=== PATIENT | female | born 1970 | race African-American/Black ===

== ENCOUNTER 2021-07-15 20:10 | Inpatient (IN) | payer OTHER ==
[~2021-07-15] VITALS: Ht 195.6 cm; Wt 130.6 kg
[2021-07-15 20:10] VITALS: BP_SYST 110; BP_SYST 159
--- NOTE | 2021-07-15 20:15 | NUR ---
Pt placed to ER bed 07, to gown, to traffic monitor specialist. Pt BIB ALS r/t ALOC s/p dialysis tx today. Per ALS, daughter on scene states that pt became more confused after dialysis tx. Pt currently alert, responds to tactile stimuli, able to verbalize name. Unable to follow commands. MD made aware and at bedside.
--- NOTE | 2021-07-15 20:30 | NUR ---
Pt to CT via stretcher on manager massage department, accompanied by ACLS RN.
--- NOTE | 2021-07-15 20:40 | NUR ---
Pt returns from CT, but moved to ER bed 01. Connected to veneer sorter, NAD. BETTY
--- NOTE | 2021-07-15 20:57 | NUR ---
X-ray at bedside.
--- NOTE | 2021-07-15 21:10 | NUR ---
# 20 gauge angiocath placed to LFA. Use of asceptic technique. Opsite placed over site. Blood return noted. Blood for lab drawn from site. Flushed with 10 cc of normal saline. No evidence of infiltration noted. Patient tolerated well.
--- NOTE | 2021-07-15 21:34 | NUR ---
#16 Fr. In/Out cath procedure performed, no U/O. Pt tolerated well. notified.
[2021-07-15 21:47] LABS: ANION GAP 9 (5-15); CHLORIDE 95 mmol/L (98-107); GLUCOSE 179 mg/dL (70-99); POTASSIUM 4.6 mmol/L (3.5-5.1); SODIUM SERUM 133 mmol/L (136-145); UREA NITROGEN, BLOOD 45 mg/dL (8-21)
[2021-07-15 21:49] LABS: CREATININE 9.46 mg/dL (0.55-1.30); GFR AFRICAN AMERICAN 6 mL/min (>90)
--- NOTE | 2021-07-15 21:50 | NUR ---
Pt's daughter, Alden Tovar ([phone]) called. She states that she noticed her mother to be more confused after receiving dialysis treatment today. Per daughter, pt's baseline is AAOx3 with coherent speech. She states that pt is blind in both eyes and uses a W/C and walker with assist at home. Pt receives dialysis tx at [facility] on TTS schedule with last treatment prior to today, on Monday.
[2021-07-15 22:05] LABS: ALANINE AMINOTRANSFERASE 5 U/L (12-78); ALBUMIN 3.2 g/dL (3.4-4.8); ASPARTATE AMINOTRANSFERASE 7 U/L (10-37); TOTAL BILIRUBIN 0.2 mg/dL (0.0-1.0)
[2021-07-15 22:06] LABS: ALCOHOL, BLOOD < 3 mg/dL (<10); LIPASE 329 U/L (73-393); THYROID STIMULATING HORMONE 1.16 uIu/mL (0.34-4.82)
[2021-07-15 22:07] LABS: BASOPHILS # (AUTO) 0.1 K/uL (0.0-0.2); BASOPHILS % (AUTO) 0.5 % (0.0-2.0); EOSINOPHILS # (AUTO) 0.2 K/uL (0.0-0.4); EOSINOPHILS % (AUTO) 1.9 % (0.0-4.0); HEMATOCRIT 31.5 % (36-48); HEMOGLOBIN 10.4 g/dL (12.0-16.0); LYMPHOCYTES # (AUTO) 1.1 K/uL (1.0-5.5); LYMPHOCYTES % (AUTO) 11.4 % (20.5-51.5); MEAN CORPUSCULAR HEMOGLOBIN 27 pg (27-31); MEAN CORPUSCULAR HGB CONC 33 % (32-36); MEAN CORPUSCULAR VOLUME 82 fL (79.0-98.0); MONOCYTES # (AUTO) 0.3 K/uL (0.0-1.0); MONOCYTES % (AUTO) 3.3 % (1.7-9.3); NEUTROPHILS # (AUTO) 7.7 K/uL (1.8-7.7); NEUTROPHILS % (AUTO) 82.9 % (40.0-70.0); PLATELET COUNT (AUTO) 200 K/uL (130-430); RED BLOOD CELL COUNT(AUTO) 3.84 MIL/uL (4.2-6.2); WHITE BLOOD COUNT (AUTO) 9.3 K/uL (4.8-10.8)
--- NOTE | 2021-07-15 22:08 | NUR ---
B/P 202/108. Pt denies H/A, no changes in mental status. Dr. Aguayo notified.
[2021-07-15] MEDS ORDERED: LABETALOL HCL 20 MG/4 ML CARTRIDGE IVP ONE (22:15)
--- NOTE | 2021-07-15 22:18 | NUR ---
B/P 195/105. Denies H/A, no changes in mental status. Labetalol 20 mg given IVP per MD order.
[2021-07-15] MEDS ORDERED: ONDA-8 TL (22:32)
[2021-07-15] MEDS ORDERED: PHE25 PO (22:32)
[2021-07-15] MEDS ORDERED: ATEN-168 PO (22:32)
[2021-07-15] MEDS ORDERED: DIPH50CA38 PO (22:37)
[2021-07-15] MEDS ORDERED: SEVE800T8 PO (22:37)
[2021-07-15] MEDS ORDERED: LORA-259 PO (22:37)
[2021-07-15] MEDS ORDERED: FAMO20VI PO (22:37)
[2021-07-15] MEDS ORDERED: TRAM50TA2 PO (22:37)
[2021-07-15] MEDS ORDERED: VIS25 PO (22:37)
[2021-07-15] MEDS ORDERED: TRAZ300T11 PO (22:37)
--- NOTE | 2021-07-15 22:38 | NUR ---
Medication reconciliation completed with information provided by medications at bedside. Any prior medication reconciliation on file was reviewed and corrected.
[2021-07-15] MEDS ORDERED: hydrALAZINE HCL 20 MG/ML VIAL IVP ONE (23:15)
--- NOTE | 2021-07-15 23:19 | NUR ---
Attempted to do patient's swallow eval. Patient adamently refused to take a spoonful of water and pushed the spoon away and stated, "get your fucking hands off of me". RN explained to patient the importance of swallow eval and patient refused teaching at this time, stating "I do not want fucking water thrown at me". Will continue to monitor.
[2021-07-16] VITALS (8 sets, daily range): BP systolic 152–188
--- NOTE | 2021-07-16 01:14 | NUR ---
Admit bed requested Patient will be admitted to care of Admitted to Telemetry unit. Diagnosis ALOC Inpatient (Yes or No) yes Observation (Yes or No) no Orientation concerns or request close to nursing station (Yes or No) yes Covid Status negative On vent or bipap no Isolation requirements no Needs a sitter no From Home (Yes or if No enter name of facility) yes Requires Dialysis (Yes or No) yes Med Rec Completed (Yes of No) yes
--- NOTE | 2021-07-16 01:25 | NUR ---
B/P 180/109. Denies H/A, no changes in LOC, Apresoline 5 mg IVP given per MD order.
[2021-07-16] MEDS: hydrALAZINE HCL 20 MG/ML VIAL IVP PRN ×3 (01:27→22:14)
--- NOTE | 2021-07-16 02:10 | NUR ---
Patient will be admitted to care of Dr. Gonzalez. Admitted to Tele unit. Will go to room 104B. Belongings list completed. Complete and up to date summary report printed. SBAR report to be given at bedside with opportunity for questions.
--- NOTE | 2021-07-16 02:18 | NUR ---
ADMISSION NOTE Received patient from ER via gurney. Patient admitted with diagnosis of ALOC. Patient is awake, & confused. Patient oriented to hospital room, call light, toileting, pain management and safety-teach back done. Patient informed that BERNADINE Giraldo will be primary nurse and that their room number is 104B. Personal belongings checked and Belongings List documented. Call light within reach.
--- NOTE | 2021-07-16 03:20 | NUR ---
With OFFICE CHAIR ASSEMBLER, attempted to check vital signs and remove blankets from ER. BP 160/82, HR 88 taken with cuff on lower extremity in place from ER. Patient refused any further assessment or interventions, shouting "stop that" and "get away from me." When asked what brought her to the hospital, patient stated "that's the reason I'm here." Bed alarm on, call light in reach.
--- NOTE | 2021-07-16 07:15 | NUR ---
OPENING NOTE RECEIVED SBAR FROM NIGHT RN, PATIENT IN BED, RESPIRATIONS EVEN NON LABORED, BED IN LOW AND LOCKED POSITION, CALL LIGHT WITHIN REACH, BED ALARM ON
[2021-07-16] MEDS ORDERED: POTASSIUM CHLORIDE 20 MEQ TAB.PRT.SR PO PRN (08:30)
[2021-07-16] MEDS ORDERED: MUPIROCIN 2% TOPICAL OINTMENT 22 GM NS PRN (08:30)
[2021-07-16] MEDS ORDERED: ZOLPIDEM TARTRATE 5 MG TABLET PO PRN (08:30)
[2021-07-16] MEDS ORDERED: ONDANSETRON HCL 4 MG/2 ML VIAL IVP PRN (08:30)
[2021-07-16] MEDS ORDERED: MAGNESIUM SULFATE 50 ML IV PRN (08:30)
[2021-07-16] MEDS ORDERED: ACETAMINOPHEN 325 MG TABLET PO PRN (08:30)
[2021-07-16] MEDS ORDERED: NALOXONE HCL 0.4 MG/ML AMP (NARCAN) IVP PRN ×2 (08:30)
[2021-07-16] MEDS ORDERED: MORPHINE 2 MG/ML INJ. SYRINGE IVP PRN ×2 (08:30)
[2021-07-16] MEDS ORDERED: DOCUSATE SODIUM 100 MG CAPSULE PO PRN (08:30)
[2021-07-16] MEDS ORDERED: DEXTROSE 50% JECT 50 ML DISP.SYRIN IVP PRN (08:45)
--- NOTE | 2021-07-16 09:28 | NUR ---
lab refused Addendum: 07/16/21 at 7986 by Bj Lang RN informed by director of laboratory operations. patient has refused lab draw
--- NOTE | 2021-07-16 09:46 | NUR ---
CONSULTATION PAGED/CALLED Reason for Consultation: []worsening confusion/weakness Person Who was Notified: [] Deena Consulting Physician: [] Sasha Bindery Production Manager Specialty: []Neuro Ordering Physician: []Clara Hartman
[2021-07-16] MEDS: NACL 0.9% 1,000 ML IV SCH (09:55)
[2021-07-16] MEDS: LORazepam 2 MG/ML VIAL IVP PRN ×2 (09:57→18:57)
[2021-07-16] MEDS: HEPARIN SODIUM,PORCINE 5,000 UNITS/ML VIAL SUBCUT SCH ×2 (09:58→22:50)
[2021-07-16] MEDS: SEVELAMER CARBONATE 800 MG TABLET PO SCH ×2 (11:34→18:00)
--- NOTE | 2021-07-16 12:00 | NUR ---
HOTEL AND DINING ROOM CASHIER PRINTING MANAGER Debbie responded to a Social Work consult request for "homeless, depression". PRINTING MANAGER Debbie met with patient at bedside. Patient was awake and appeared to be somewhat confused. She was aware of self, location but unable to share day/time and provide some information. PRINTING MANAGER completed introductions, provided business card, and reason for referral, patient was open to contact. Current issue/need- Patient shared she has been residing in a hotel for 2 weeks with her daughter Tato following their eviction from their apartment. Social- Patient shared she lives with her 17 year old daughter Tato but at this time she can longer afford to continue paying for the hotel. She shares she also has an adult daughter Malcom who resides in [facility], Mom Roslyn Porras , and sister Jessica Chakraborty. According to patient and patient's daughter Tato will safely be residing with her grandmother Roslyn while patient is in facility. Medical needs- Patient is visually impaired and utilizes a walker. She currently receives disability. Her daughter also receives disability due to hearing impairment (wears a hearing aid in left ear). Daughter provides support with caregiving to mother, and family provides transportation to doctor appointments. PRINTING MANAGER explored the patient utilizing family members for housing options, but shares "they'll take my daughter but not me for private reasons". PRINTING MANAGER inquired into her older child providing residence, but she shared she has a child and they reside in a small rental. Patient and her daughter shared they are receiving support with locating housing and pertinent resources from [facility] Air Shovel Operator. PRINTING MANAGER provided them information related to Community resources and encouraged them to continue following up with [facility]. PRINTING MANAGER also encouraged contact with [address] to begin process for housing, and to inquire into Housing for Health program. PRINTING MANAGER also addressed medical staff's sharing patient was refusing vitals and blood draw. PRINTING MANAGER encouraged patient to allow necessary treatment, and patient shared she 'just had a headache but it's getting better now since I'm eating". PRINTING MANAGER will continue to be available as needed.
--- NOTE | 2021-07-16 14:00 | NUR ---
Hemodialysis session by bedside, started. No acute distress. AM labs and BC were collected and sent to lab.
--- NOTE | 2021-07-16 15:07 | NUR ---
Continuity of care, endorsed.
[2021-07-16 15:19] LABS: CALCIUM 8.4 mg/dL (8.4-11.0); POTASSIUM 4.7 mmol/L (3.5-5.1)
[2021-07-16 15:21] LABS: CREATININE 10.37 mg/dL (0.55-1.30)
--- NOTE | 2021-07-16 16:00 | NUR ---
Notes/Agitation Patient is agitated, noted screaming for the nurse while in bed. Per patient, "Im blind! I need someone to help me call my family." Family just left bedside. Nurse attempted to reorient patient, pt continues to be agitated. No resp distress noted, RA. Denies any pain. Dialysis in session. Will continue to monitor.
--- NOTE | 2021-07-16 16:41 | NUR ---
ST EVALUATION COMPLETED. ST TX NOT INDICATED AT THIS TIME. RECOMMEND CONTINUE CURRENT DIET WITH DISTANT SUPERVISION AND ASPIRATION PRECAUTIONS.
[2021-07-16] MEDS: INSULIN LISPRO SLIDING SCALE 100 UNITS/ML VIAL (humaLOG) SUBCUT PRN ×2 (17:40→22:49)
--- NOTE | 2021-07-16 18:23 | NUR ---
CRITICAL LAB: Laboratory called with critical lab value Creatinine 10.37. Medical record number and patient name verified. Read back of values done. Dr Swan notified of value. No orders given at this time. Current dialysis.
--- NOTE | 2021-07-16 18:30 | NUR ---
Closing Notes Patient is awake, alert and oriented x3. No resp distress noted, RA. Pt denies any pain at this time. Pt is agitated. Nurse assisted pt with the bedpan. IV site on right FA 20 gauge intact, NS @ 50 ml/hr, infusing well. Pericare provided. Will endorse to next shift to collect UA sample. All needs met. Safety and fall precautions in place. Bed in lowest position, alarm on, locked.
[2021-07-16] MEDS: traZODone HCL 50 MG TABLET (DESYREL) PO SCH (22:12)
[2021-07-16] MEDS: ATENOLOL 50 MG TABLET (TENORMIN) PO SCH (22:13)
[2021-07-17] MEDS: traZODone HCL 50 MG TABLET (DESYREL) PO SCH ×2 (00:17→21:00)
[2021-07-17] MEDS: ATENOLOL 50 MG TABLET (TENORMIN) PO SCH ×2 (00:17→21:00)
--- NOTE | 2021-07-17 00:22 | NUR ---
Refused meds/vitals During med pass, patient was drowsy and refused PO meds. IV hydralazine given for BP 188/83. On recheck BP 158/81, HR 78. Patient removed O2 sat probe before good reading was obtained and refused temperature check. Second attempt made to give PO atenolol and trazodone. Education given about the purpose of the meds and the risks of high blood pressure, patient refused and covered head with blanket and said "leave me alone."
[2021-07-17] MEDS: NACL 0.9% 1,000 ML IV SCH (04:57)
[2021-07-17] MEDS: LORazepam 2 MG/ML VIAL IVP PRN ×2 (04:58→10:22)
[2021-07-17] MEDS: INSULIN LISPRO SLIDING SCALE 100 UNITS/ML VIAL (humaLOG) SUBCUT PRN ×2 (06:39→12:56)
--- NOTE | 2021-07-17 07:22 | NUR ---
Closing Patient resting in bed, unlabored breathing on room air. Given hydralazine IVP PRN, and Ativan PRN for agitation. Patient refused PO meds and refused labs this morning. Blood sugar 168 this morning, given 2 units lispro. IV fluids infusing as ordered. Call light in reach, fall and safety precautions in place.
--- NOTE | 2021-07-17 07:30 | NUR ---
OPENING NOTE Patient resting in bed, oriented to self, place and situation. Patient is agitated and noncompliant with plan of care. IV is in place and running prescribed fluids. All needs met at this time and safety checks made. Will continue to monitor.
[2021-07-17 08:00] VITALS: BP_SYST 187
[2021-07-17] MEDS: SEVELAMER CARBONATE 800 MG TABLET PO SCH ×3 (08:00→18:00)
--- NOTE | 2021-07-17 08:42 | NUR ---
CONSULTATION PAGED/CALLED Reason for Consultation: [] confusion and delusions Person Who was Notified: [] LEFT A VOICE MESSAGE ON HIS CELL Consulting Physician: [] DR HORTA Public Policy Professor Specialty: [] PSYCH Ordering Physician: [] Bhakti PRITCHETT
[2021-07-17] MEDS: HEPARIN SODIUM,PORCINE 5,000 UNITS/ML VIAL SUBCUT SCH ×3 (09:00→21:00)
--- NOTE | 2021-07-17 09:56 | NUR ---
DIALYSIS Patient receiving dialysis, tolerating well. All needs met at this time, and safety checks made. Will continue to monitor.
--- NOTE | 2021-07-17 10:22 | NUR ---
MEDICATION REFUSAL Patient refused morning medications, education given and patient continued to refuse. Heparin wasted in med room.
[2021-07-17 10:28] VITALS: BP_SYST 130
--- NOTE | 2021-07-17 10:47 | NUR ---
DIALYSIS FINISHED Patient refused to continue dialysis, stopped after an hour and a half. 1.5L removed.
[2021-07-17 11:30] VITALS: BP_SYST 166
[2021-07-17 15:13] VITALS: BP_SYST 166
--- NOTE | 2021-07-17 18:58 | NUR ---
CLOSING NOTE Patient in bed resting with eyes closed. No sign of distress or pain. IV is clean, dry, intact and patent. Patient has been pulling at line, redirected actions. Patient has been noncompliant with plan of care and refuses most medications. Comfort measures provided. All needs met at this time and safety checks made. Will endorse to personal injury legal assistant nurse.
--- NOTE | 2021-07-17 21:39 | NUR ---
Primary RN came and told me pt. is refusing all medication and vitals signs , went to the pt room and tried to talk to the pt , pt is covered in a blanket able to see her face eyes are closed greeted the pt and explained to her that i will check her BP so i will know what is the reading , pt stated " no leave me alone , tried to educated pt the need to check the vitals and the prescribed medication .pt stated " you can tell me the whole night but i am not going to let you or anyone do it , leave me alone" . will try again later .
--- NOTE | 2021-07-17 22:16 | NUR ---
1999- I TRIED TO TAKE THE PATIENTS VITAL SIGNS AND PATIENT REFUSED, PT STATED "IM NOT DOING NOTHING, I DONT CARE ABOUT MY BLOOD PRESSURE AND STUFF". I MADE THE CHARGE NURSE AWARE. 2099- I WENT INTO THE PATIENTS ROOM AGAIN AND TRIED TO GET HER TO LET ME TAKE HER VITAL SIGNS AGAIN WITH THE CHARGE NURSE AND PATIENT STILL REFUSED ALL VITAL SIGNS AND ALL MEDICATIONS, PT STATED: I TOLD THE OTHER NURSE AGAIN , I DONT CARE WHAT YOU TELL ME I AM NOT DOING NOTHING ALL NIGHT AND IF YOU COME BOTHER ME DURING THE NIGHT AGAIN WE ARE GOING TO HAVE A PROBLEM". I ALSO TRIED TO ADMINISTER PT MEDICATIONS, PT REFUSED ALL MEDICATIONS, PT STATED' " NO IM NOT TAKING ANYTHING I DONT CARE WHAT YOU SAY YOU NEED TO LEAVE ME ALONE". I TRIED EDUCATING THE PATIENT ABOUT THE BENEFITS OF TAKING HER MEDICATIONS AND PT STATED "GO AWAY, LEAVE ME ALONE". PT ALSO DEMANDED TO HELP HER USE THE BATHROOM I PROVIDED HER A BEDPAN AND PT STATED: " GIVE ME A WIPE NOW, AND HURRY UP" I GAVE HER THE WIPES AND SHE TRIED TO THROW THE DIRTY WIPES AT ME. I TOLD HER THAT IF SHE GETS HOSTILE WE WILL HAVE TO CALL SECURITY AND SHE CALMED DOWN A LITTLE BIT AND IS NOW LAYING DOWN WITH HEAD UP IN BED. CHARGE NURSE IS AWARE
--- NOTE | 2021-07-18 | NUR ---
PT REFUSED VITAL SIGNS , CHARGE NURSE AWARE
[2021-07-18] MEDS: NACL 0.9% 1,000 ML IV SCH ×2 (00:39→20:45)
[2021-07-18 07:28] LABS: BASOPHILS # (AUTO) 0.1 K/uL (0.0-0.2); BASOPHILS % (AUTO) 0.8 % (0.0-2.0); EOSINOPHILS # (AUTO) 0.5 K/uL (0.0-0.4); EOSINOPHILS % (AUTO) 3.2 % (0.0-4.0); HEMOGLOBIN 9.8 g/dL (12.0-16.0); LYMPHOCYTES # (AUTO) 3.1 K/uL (1.0-5.5); LYMPHOCYTES % (AUTO) 21.9 % (20.5-51.5); MEAN CORPUSCULAR HEMOGLOBIN 27 pg (27-31); MEAN CORPUSCULAR HGB CONC 33 % (32-36); MEAN CORPUSCULAR VOLUME 83 fL (79.0-98.0); MONOCYTES # (AUTO) 0.8 K/uL (0.0-1.0); MONOCYTES % (AUTO) 5.4 % (1.7-9.3); NEUTROPHILS # (AUTO) 9.6 K/uL (1.8-7.7); NEUTROPHILS % (AUTO) 68.7 % (40.0-70.0); PLATELET COUNT (AUTO) 186 K/uL (130-430); RED BLOOD CELL COUNT(AUTO) 3.61 MIL/uL (4.2-6.2); RED CELL DISTRIBUTION WIDTH 17.7 % (9.0-15.0)
[2021-07-18 07:47] LABS: CALCIUM 9.2 mg/dL (8.4-11.0); POTASSIUM 4.7 mmol/L (3.5-5.1)
[2021-07-18] MEDS: SEVELAMER CARBONATE 800 MG TABLET PO SCH ×3 (08:00→18:00)
--- NOTE | 2021-07-18 08:07 | NUR ---
OPENING NOTE Patient in bed resting, awake and alert, oriented to self, place and situation. Patient continues to refuse IV fluids. Patient refusing vital signs, will attempt to take them again after breakfast. Assisted patient to the bedside commode where she had a loose bowel movement. Reoriented patient and provided comfort measures. All needs met at this time and safety checks made. Will continue to monitor.
[2021-07-18 08:53] LABS: CREATININE 8.34 mg/dL (0.55-1.30)
[2021-07-18] MEDS: HEPARIN SODIUM,PORCINE 5,000 UNITS/ML VIAL SUBCUT SCH ×2 (09:00→21:45)
--- NOTE | 2021-07-18 09:14 | NUR ---
CRITICAL LAB Creatinine 8.34. Spoke to Dr Swan, no new orders.
[2021-07-18] MEDS: LORazepam 2 MG/ML VIAL IVP PRN (11:30)
[2021-07-18 12:11] VITALS: BP_SYST 165
--- NOTE | 2021-07-18 12:22 | NUR ---
IV INFILTRATED Old IV removed, no active bleeding. Patient refused new IV placement. MD aware and changed medication orders to PO.
[2021-07-18] MEDS ORDERED: LORazepam 1 MG TABLET PO PRN (12:30)
[2021-07-18] MEDS ORDERED: hydrALAZINE HCL 25 MG TABLET PO PRN (12:30)
[2021-07-18] MEDS: LOPERAMIDE HCL 2 MG CAPSULE PO PRN (12:36)
[2021-07-18] MEDS: INSULIN LISPRO SLIDING SCALE 100 UNITS/ML VIAL (humaLOG) SUBCUT PRN ×2 (12:38→21:46)
--- NOTE | 2021-07-18 16:10 | NUR ---
ROUNDS Patient sitting at bedside. Assisted the patient with bathing and had her linen changed. Patient is anxious and agitated. Patient frequently refuses care. All needs met and safety checks made. Will continue to monitor.
--- NOTE | 2021-07-18 16:29 | NUR ---
SPOKE WITH MD Spoke to Dr Mancilla and informed him that the patient is requesting a transfer to [facility]. Patient is refusing most treatment stating she will continue to refuse if she is at this facility. MD to see patient tomorrow morning and speak with case management about a possible transfer.
--- NOTE | 2021-07-18 16:43 | NUR ---
PATIENT AGITATED Patient agitated and screaming demanding to speak with a doctor. Updated the patient on her plan of care, patient responded "I dont want to hear that bullshit, dumbass". Comfort measures offered, patient refused. Attempted to assist patient in speaking with her daughter on the phone, patient refused. Will continue to monitor.
--- NOTE | 2021-07-18 19:39 | NUR ---
CLOSING NOTE Patient sitting at the side of the bed after eating dinner. Assisted patient with hygiene care and a bed bath, changed linens again. Patient continues to be agitated and confused, oriented to self and place. Patient insisting on transferring to [facility] and continues to refuse care. No IV access at this time, MD aware. All needs met at this time and safety checks made. Endorsed to lieutenant shift supervisor nurse.
[2021-07-18 21:04] VITALS: BP_SYST 162
[2021-07-18] MEDS: ATENOLOL 50 MG TABLET (TENORMIN) PO SCH (21:44)
[2021-07-18] MEDS: traZODone HCL 50 MG TABLET (DESYREL) PO SCH (21:44)
--- NOTE | 2021-07-18 23:30 | NUR ---
pt allowed me to attempted to insert iv. was unsuccessful. Pt allowed charge nurse to attempt to insert an iv a few times and charge nurse was unsuccessful. pt refused to have us attempt another try and inserting an iv. pt currently does not have iv access.
--- NOTE | 2021-07-19 06:49 | NUR ---
pt currently sleeping in bed. pt to have hd today. pt currently refused accu check this am. will endorse to am nurse. pt does not want to be bothered and wants to sleep right now.
[2021-07-19 06:53] LABS: BASOPHILS # (AUTO) 0.1 K/uL (0.0-0.2); BASOPHILS % (AUTO) 0.7 % (0.0-2.0); EOSINOPHILS # (AUTO) 0.3 K/uL (0.0-0.4); EOSINOPHILS % (AUTO) 4.1 % (0.0-4.0); HEMATOCRIT 27.8 % (36-48); HEMOGLOBIN 9.1 g/dL (12.0-16.0); LYMPHOCYTES # (AUTO) 2.2 K/uL (1.0-5.5); LYMPHOCYTES % (AUTO) 26.6 % (20.5-51.5); MEAN CORPUSCULAR HEMOGLOBIN 28 pg (27-31); MEAN CORPUSCULAR HGB CONC 33 % (32-36); MEAN CORPUSCULAR VOLUME 84 fL (79.0-98.0); MONOCYTES # (AUTO) 0.5 K/uL (0.0-1.0); MONOCYTES % (AUTO) 5.9 % (1.7-9.3); NEUTROPHILS # (AUTO) 5.3 K/uL (1.8-7.7); NEUTROPHILS % (AUTO) 62.7 % (40.0-70.0); PLATELET COUNT (AUTO) 179 K/uL (130-430); RED BLOOD CELL COUNT(AUTO) 3.32 MIL/uL (4.2-6.2); RED CELL DISTRIBUTION WIDTH 17.5 % (9.0-15.0); WHITE BLOOD COUNT (AUTO) 8.4 K/uL (4.8-10.8)
[2021-07-19 07:19] LABS: POTASSIUM 4.6 mmol/L (3.5-5.1)
[2021-07-19 07:45] LABS: CREATININE 10.51 mg/dL (0.55-1.30)
[2021-07-19 08:00] VITALS: BP_SYST 135
--- NOTE | 2021-07-19 08:00 | NUR ---
INITIAL NOTES PATIENT IN BED, RESTING EYES CLOSED. PATIENT AROUSED TO NAME. WENT IN TO GIVE MEDS AND TO DO HER ACCU CHECK, PATIENT REFUSED AT THIS TIME. STATED SHE WANTED TO REST AND TO NOT DISTURB HER. PATIENT ON ROOM AIR, SPO2 AT 95%. NO S/S OF DISTRESS. DENIES ANY PAIN. BREATHING EVEN AND NON LABORED. SAFETY PRECAUTIONS IN PLACE AND CALL LIGHT WITHIN REACH.
--- NOTE | 2021-07-19 08:20 | NUR ---
CRITICAL LAB CALLED AND SPOKE TO DR. ELIAS. MD KRIS NO CHANGE IN ORDERS. PATIENT TO HAVE DIALYSIS TODAY.
[2021-07-19] MEDS: SEVELAMER CARBONATE 800 MG TABLET PO SCH ×3 (10:26→18:00)
[2021-07-19] MEDS: HEPARIN SODIUM,PORCINE 5,000 UNITS/ML VIAL SUBCUT SCH ×2 (10:29→21:00)
[2021-07-19 11:23] VITALS: BP_SYST 156
--- NOTE | 2021-07-19 11:30 | NUR ---
NOTES PATIENT STARTED DIALYSIS. NO COMPLAINTS OF PAIN OR DISTRESS NOTED.
[2021-07-19] MEDS: INSULIN LISPRO SLIDING SCALE 100 UNITS/ML VIAL (humaLOG) SUBCUT PRN ×2 (11:55→17:30)
--- NOTE | 2021-07-19 13:38 | NUR ---
CM: S/w marli Bernal /[facility] tel # [phone], stated because the pt is homeless/lives in hotel and for safe discharge , the dcp is to send pt to snf which was ordered by her primary physician prior to admit at [facility]. The snf was not arranged at that time. Dolores is faxing the snf contracted to pr to find an accepting facility for dc from [facility]. Meanwhile the pt is authorized to be at [facility] until discharge.
--- NOTE | 2021-07-19 14:40 | NUR ---
NOTES DIALYSIS ENDED. OUTPUT WAS 2.6 L. NO S/S OF DISTRESS. NO PAIN NOTED. SAFETY PRECAUTIONS IN PLACE AND CALL LIGHT WITHIN REACH.
--- NOTE | 2021-07-19 16:14 | NUR ---
PARTRIDGE FARMER TILE DESIGNER Debbie responded to a request for social service support from Nurse Transitional Cleo to address patient being homeless and refusing SNF. TILE DESIGNER consulted with BOB Valdez to acquire additional information on patient's behavior and discharge plan. History- TILE DESIGNER also contacted [facility] [phone] and discussed prior discharge plans with Nurse Mall Plant Caretaker Maricruz. Maricruz shared the patient has been working with [facility] and [facility] to address housing needs. She also shared patient has a history of refusing placement upon discharge from hospitals with the most recent being [facility]. She also shared patient's PCP had requested placement with [facility], but patient had refused the required PT eval. TILE DESIGNER obtained an update from PT stated patient did not want to participate on Monday, and patient continues to need assistance in ambulation. TILE DESIGNER contactrd daughter Tato who shared she was now staying with her adult sister Malcom Chakraborty . TILE DESIGNER contacted Malcom who stated they have had numerous conversations with patient regarding ongoing care to which patient has refused as well. Malcom shared family is unable to provide care for patient as she continues to refuse treatment. It is important to note, adult daughter Malcom should be contacted to discuss patient's needs/concerns. TILE DESIGNER met with patient at bedside. She was sitting on side of bed attempting to make call to her daughter Tato. Patient was visibly upset and observed to be crying. Patient shared "everyone is lying on me" when TILE DESIGNER attempted to address her hesitation to services/treatment/procedures/discharge plan. TILE DESIGNER also spoke to patient with her daughters and sister on speaker phone as they attempted to address her hesitation and plead with her to continue medical care at a SNF or similar. Patient was observed to be crying and verbalized "i dont have nothing without Tato. I feel so alone I dont want to be here any more". Due to patient's expression of "not wanting to be here anymore", TILE DESIGNER explored these feelings further. According to patient, she feels alone due to her condition, but denies SI. At this time, following contact with daughters, patient has agreed to move forward with continued medical care in appropriate and recommended setting and participate in any needed evaluation. TILE DESIGNER provided update to Nurse Transitional Cleo MURPHY will continue to be available as needed.
[2021-07-19] MEDS: NACL 0.9% 1,000 ML IV SCH (16:45)
--- NOTE | 2021-07-19 18:42 | NUR ---
CLOSING NOTES PATIENT IS SITTING AT THE EDGE OF THE BED, EATING DINNER. PATIENT REFUSED 1800 MEDICATIONS, STATED "AM NOT GOING TO TAKE ANY MORE MEDS." PATIENT THROUGHOUT SHIFT REFUSED FOR AN IV TO BE PUT BACK IN. PATIENT WAS TO BE DISCHARGED AFTER DIALYSIS; BUT, PATIENT HAS NO WHERE TO GO. CONTACT WORKER LITHOGRAPHY AND ATM MECHANIC WORKING ON FINDING WHERE PATIENT CAN GO. AT THIS TIME, PATIENT DENIES ANY PAIN OR DISCOMFORT. DENIES ANY SOB. BREATHING EVEN AND NON LABORED, ON ROOM AIR. PATIENT AWARE TO CALL FOR ASSISTANCE WHEN NEEDED. SAFETY PRECAUTIONS IN PLACE, BED ALARM ON, AND CALL LIGHT WITHIN REACH.
[2021-07-19] MEDS: ATENOLOL 50 MG TABLET (TENORMIN) PO SCH (21:00)
[2021-07-19] MEDS: traZODone HCL 50 MG TABLET (DESYREL) PO SCH (21:00)
--- NOTE | 2021-07-19 22:18 | NUR ---
pt refused all meds, accu check and blood pressure. pt educated on importance of them all but pt continue to refuse
--- NOTE | 2021-07-20 01:00 | NUR ---
PT REFUSED MIDNIGHT VITALS. PT STILL WONT ALLOW FOR ACCU CHECK. WILL CONTINUE TO ATTEMPT TO EDUCATE PATIENT
--- NOTE | 2021-07-20 06:50 | NUR ---
pt refused blood pressure and accu check. pt legs hanging off the side of bed. pt refused to be pulled up. Due to saftey concerns pt was pulled up in bed by 2 nurses. pt tried to hit and kick both nurses and she was being pulled up. bed alarm on. call light within reach. will endorse care to day rn.
[2021-07-20 08:00] VITALS: BP_SYST 133
--- NOTE | 2021-07-20 08:00 | NUR ---
OPENING NOTE Patient in bed resting, oriented to self and place. Patient is agitated and non compliant with care. Patient agreed to have her vitals taken but is currently refusing IV access and her morning medications. Assisted patient in repositioning and comfort measures measures provided. All needs met at this time and safety checks made.
[2021-07-20] MEDS: HEPARIN SODIUM,PORCINE 5,000 UNITS/ML VIAL SUBCUT SCH ×2 (09:24→21:00)
[2021-07-20] MEDS: SEVELAMER CARBONATE 800 MG TABLET PO SCH ×3 (09:25→18:00)
--- NOTE | 2021-07-20 11:12 | NUR ---
REAL ESTATE PROFESSIONAL RN BUILDING Debbie emailed admitting to update patient's Person to Notify and Next of Kin to reflect patient's adult daughter Malcom Chakraborty
--- NOTE | 2021-07-20 11:15 | NUR ---
Discharge Planning: DCP faxed pt referral to [facility] P#[phone], Carissa Bailon P#[phone], [facility] P#[phone] DCP to follow up
[2021-07-20] MEDS: NACL 0.9% 1,000 ML IV SCH (12:45)
[2021-07-20] MEDS: INSULIN LISPRO SLIDING SCALE 100 UNITS/ML VIAL (humaLOG) SUBCUT PRN (12:49)
--- NOTE | 2021-07-20 14:56 | NUR ---
BUSINESS CENTER REPRESENTATIVE JEFFREY Lewis contacted patient's daughter Malcom to provide an update on difficulties securing placement for patient, and informed her of patient's continued refusal of care. Mental Health- Malcom shares the patient was diagnosed with Bipolar about 15 years ago, but "she has always been in denial' and has refused medication. CISCO ADMINISTRATOR explored impact and connection of untreated mental health conditions, physical health, and ability to make decisions related to safety and well-being. Malcom shares the family has explored conservatorship in the past but has been unsuccessful. Social- According to patient's daughter the family is unable to provide support to the patient at this time. She shares the patient's mother Mallika Porras is undergoing cancer treatment, patient's brother is undergoing dialysis and is in "2 boots right now". 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 She shared she was patient's previous caregiver under [facility] but due to patient's constant "accusing everyone of lying or bad treatment" she ended participation in this program. CISCO ADMINISTRATOR also discussed psych treatment due to patient's behavior/decisions and untreated mental health diagnosis and explained inpatient would be difficult due to patients ongoing medical needs. CISCO ADMINISTRATOR addressed the need for family support with discharge should placement not be found. Malcom provided information for [facility] as an additional placement option as she is employed as a EXTERIOR DOOR INSTALLER there. JEFFREY Lewis provided update to Agricultural Service Technician Cleo CISCO ADMINISTRATOR will continue to be available as needed
--- NOTE | 2021-07-20 15:11 | NUR ---
SURVEYOR ROD HELPER JEFFREY Lewis faxed packet for review to [facility] fax: direct:
--- NOTE | 2021-07-20 18:55 | NUR ---
CLOSING NOTE Patient in bed resting, no sign of distress and patient denies pain. Patient has refused to have her blood sugar checked and take her 1800 medication. Spoke with patient's daughter and updated her on the patient's plan of care. Comfort measures provided to the patient and all needs met throughout the shift. Will endorse to police shift commander nurse.
--- NOTE | 2021-07-20 20:00 | NUR ---
PT IN BED UPSET. PT REFUSED TO TAKE HER MEDS AND ACCU CHECK. ATTEMPTED TO EDUCATE PT BUT SHE REFUSED TO LISTEN. WILL CONTINUE TO MONITOR. BED ALARM ON. CALL LIGHT WITHIN REACH.
[2021-07-20 20:35] VITALS: BP_SYST 150
[2021-07-20] MEDS: ATENOLOL 50 MG TABLET (TENORMIN) PO SCH (21:00)
[2021-07-20] MEDS: traZODone HCL 50 MG TABLET (DESYREL) PO SCH (21:00)
--- NOTE | 2021-07-21 00:20 | NUR ---
PT ASLEEP IN BED. PT REFUSED VITALS AT MIDNIGHT
--- NOTE | 2021-07-21 05:48 | NUR ---
PT REFUSED ALL TREATMENT DURING SHIFT. UNABLE TO CHECK SUGAR AND GIVE MEDICATION. PT BECAME LOUD AND STARTED YELLING AT ME. PT WAS ASKED TO LOWER VOICE AND NOT YELL AT STAFF
[2021-07-21 08:00] VITALS: BP_SYST 150
[2021-07-21] MEDS: NACL 0.9% 1,000 ML IV SCH (08:45)
--- NOTE | 2021-07-21 09:05 | NUR ---
GLOBAL SECURITY ARCHITECT RISK DEVELOPER Debbie, with support from RN Erick, faxed packet for review to the following facilities for placement; [facility] fax: [facility] fax: [facility] fax: [facility] fax: [facility] fax: [facility] fax: [facility] fax: [facility] fax: [facility] fax: [facility] and [facility] fax: As directed by insurance, packets will continue to be faxed to the facilities on the list provided by insurance to locate placement.
[2021-07-21] MEDS: SEVELAMER CARBONATE 800 MG TABLET PO SCH ×3 (09:18→18:00)
[2021-07-21] MEDS: HEPARIN SODIUM,PORCINE 5,000 UNITS/ML VIAL SUBCUT SCH ×2 (09:22→21:09)
[2021-07-21 10:16] LABS: CALCIUM 9.6 mg/dL (8.4-11.0)
[2021-07-21 10:23] LABS: BASOPHILS # (AUTO) 0.1 K/uL (0.0-0.2); BASOPHILS % (AUTO) 0.7 % (0.0-2.0); EOSINOPHILS # (AUTO) 0.3 K/uL (0.0-0.4); HEMATOCRIT 30.2 % (36-48); HEMOGLOBIN 9.9 g/dL (12.0-16.0); LYMPHOCYTES # (AUTO) 1.5 K/uL (1.0-5.5); LYMPHOCYTES % (AUTO) 16.8 % (20.5-51.5); MEAN CORPUSCULAR HEMOGLOBIN 27 pg (27-31); MEAN CORPUSCULAR HGB CONC 33 % (32-36); MEAN CORPUSCULAR VOLUME 84 fL (79.0-98.0); MONOCYTES # (AUTO) 0.4 K/uL (0.0-1.0); MONOCYTES % (AUTO) 4.8 % (1.7-9.3); NEUTROPHILS # (AUTO) 6.7 K/uL (1.8-7.7); NEUTROPHILS % (AUTO) 74.7 % (40.0-70.0); PLATELET COUNT (AUTO) 178 K/uL (130-430); RED BLOOD CELL COUNT(AUTO) 3.61 MIL/uL (4.2-6.2); RED CELL DISTRIBUTION WIDTH 17.5 % (9.0-15.0)
[2021-07-21 10:49] LABS: CREATININE 10.13 mg/dL (0.55-1.30); POTASSIUM 5.9 mmol/L (3.5-5.1)
[2021-07-21 11:31] VITALS: BP_SYST 151
[2021-07-21] MEDS: INSULIN LISPRO SLIDING SCALE 100 UNITS/ML VIAL (humaLOG) SUBCUT PRN ×2 (12:36→21:07)
[2021-07-21] MEDS ORDERED: SODIUM ZIRCONIUM CYCLOSILICATE 10 GM POWD.PACK PO ONE (13:15)
--- NOTE | 2021-07-21 13:35 | NUR ---
Patient refused gait training. She is sitting, independently, at the bedside. Nursing supervising her for safety.
--- NOTE | 2021-07-21 14:00 | NUR ---
CM: S/w CHELLY Bernal/[facility]: The pt is not approved for snf placement per medical device engineer second review. She suggested to send the referral to [facility] for placement. [facility] is to authorize once there is accepting facility. The psych consult is required as well. -- Dr Gonzalez made aware. Psych consult ordered. Addendum: 07/21/21 at 1549 by Cleo Sainz RN S/W admitting /[facility] # [phone]: the pt does not meet criteria for the placement. The patient must have disability diagnosis at age 18 and be under [facility] supervision for placement. I LISA informed chelly Bernal at [facility] and asked for further placement assistance.
[2021-07-21 15:20] VITALS: BP_SYST 156
--- NOTE | 2021-07-21 18:00 | NUR ---
PT RECEIVED HEMODIALYSIS TODAY. 2.5 L FLUID REMOVED. PT IS NOW AWAKE, ALERT AND TALKATIVE. NO S/S ACUTE DISTRESS NOTED.
[2021-07-21 20:00] VITALS: BP_SYST 157
[2021-07-21] MEDS ORDERED: DIPHENHYDRAMINE HCL 12.5 MG/5 ML UDC PO PRN (20:30)
[2021-07-21] MEDS: traZODone HCL 50 MG TABLET (DESYREL) PO SCH (20:50)
[2021-07-21] MEDS: ATENOLOL 50 MG TABLET (TENORMIN) PO SCH (20:50)
[2021-07-21] MEDS: LOPERAMIDE HCL 2 MG CAPSULE PO PRN (21:07)
--- NOTE | 2021-07-21 22:10 | NUR ---
NN: PT REPORTING ITCHINESS AFTER DIALYSIS, CLAIMS THAT SHE USUALLY TAKES BENADRYL DURING DIALYSIS EVEN BEFORE HOSPITALIZATION. DID GET ORDER FROM DR. ALBRECHT REGARDING STANDING BENADRYL ORDER PRN FOR ITCHINESS. SO FAR NO COMPLAINTS OF FURTHER ITCHINESS AND PT IS CALM IN BED.
--- NOTE | 2021-07-21 23:47 | NUR ---
PT MUCH MORE COMPLIANT WITH ME WITH HER PLAN OF CARE. WAS ABLE TO TAKE VITALS, CHECK BLOOD SUGAR, AND ADMIN MEDICATION WHICH SHE ASKED QUESTIONS BEING MORE INVOLVED WITH HER CARE. HAS REMAINED CALM AND COOPERATIVE WITH ME SINCE START OF SHIFT. PROVIDED EDUCATION ON EACH NURSING INTERVENTION WELL MEDICATION ADMINISTRATION MONITORING FOR THERAPEUTIC EFFECTS. CURRENTLY IN BED RESTING COMFORTABLY. WILL CONT TO MONITOR, SAFETY PRECAUTIONS IN PLACE, AND CONT W PLAN OF CARE.
[2021-07-22 00:06] VITALS: BP_SYST 155
--- NOTE | 2021-07-22 03:58 | NUR ---
Consultation Paged Reason for Consultation: agitation/ original order was on 07/17 Was consult called: Y Person who was notified: Rachel Consulting Physician: Dr. Sotomayor Ordering Physician: Dr. Gonzalez
[2021-07-22] MEDS: NACL 0.9% 1,000 ML IV SCH (05:21)
--- NOTE | 2021-07-22 06:27 | NUR ---
PT WAS COMPLIANT THROUGHOUT THE NIGHT, BUT GETS VERY GROUCHY/ANGRY IN THE MORNING. DID NOT ALLOW ME TO PERFORM BLOOD SUGAR CHECK SHE REMAINED UNDER COVERS AND TOLD ME TO LEAVE HER ALONE. EDUCATED ON IMPORTANCE OF BLOOD SUGAR MONITORING AND INSULIN ADMIN PRIOR TO BREAKFAST WHICH SHE SAID "LATER" WILL ENDORSE DAY TEAM
--- NOTE | 2021-07-22 06:52 | NUR ---
PT WAS SEEN UP AT BEDSIDE REQUESTING CRACKERS. DID EDUCATE ONCE AGAIN IMPORTANCE OF BLOOD SUGAR MONITORING WHICH SHE DID ALLOW ME TO CHECK HER SUGAR. VALUE AT 92 WHICH WITHIN NORMAL LIMITS. PT EATING CRACKERS.
[2021-07-22] MEDS: SEVELAMER CARBONATE 800 MG TABLET PO SCH ×3 (08:00→18:33)
[2021-07-22 09:41] LABS: BASOPHILS # (AUTO) 0.1 K/uL (0.0-0.2); BASOPHILS % (AUTO) 0.6 % (0.0-2.0); EOSINOPHILS # (AUTO) 0.2 K/uL (0.0-0.4); EOSINOPHILS % (AUTO) 2.8 % (0.0-4.0); HEMATOCRIT 29.4 % (36-48); HEMOGLOBIN 9.6 g/dL (12.0-16.0); LYMPHOCYTES # (AUTO) 1.7 K/uL (1.0-5.5); LYMPHOCYTES % (AUTO) 20.4 % (20.5-51.5); MEAN CORPUSCULAR HEMOGLOBIN 27 pg (27-31); MEAN CORPUSCULAR HGB CONC 33 % (32-36); MEAN CORPUSCULAR VOLUME 83 fL (79.0-98.0); MONOCYTES # (AUTO) 0.4 K/uL (0.0-1.0); MONOCYTES % (AUTO) 5.3 % (1.7-9.3); NEUTROPHILS % (AUTO) 70.9 % (40.0-70.0); PLATELET COUNT (AUTO) 178 K/uL (130-430); RED BLOOD CELL COUNT(AUTO) 3.53 MIL/uL (4.2-6.2); RED CELL DISTRIBUTION WIDTH 17.2 % (9.0-15.0); WHITE BLOOD COUNT (AUTO) 8.5 K/uL (4.8-10.8)
[2021-07-22] MEDS: HEPARIN SODIUM,PORCINE 5,000 UNITS/ML VIAL SUBCUT SCH (09:42)
[2021-07-22 10:15] LABS: CALCIUM 9.2 mg/dL (8.4-11.0); POTASSIUM 5.1 mmol/L (3.5-5.1); TOTAL BILIRUBIN 0.2 mg/dL (0.0-1.0)
[2021-07-22 10:26] LABS: CREATININE 8.41 mg/dL (0.55-1.30)
[2021-07-22] MEDS: INSULIN LISPRO SLIDING SCALE 100 UNITS/ML VIAL (humaLOG) SUBCUT PRN ×2 (11:39→18:38)
--- NOTE | 2021-07-22 14:34 | NUR ---
EXTRAS CASTING DIRECTOR SALES CONSULTANT Debbie attempted contact with patient's brother Vern to discuss discharge, unable to leave voicemail. Addendum: 07/22/21 at 1444 by Debbie Stafford MSW SALES CONSULTANT contacted patient's daughter Malcom Chakraborty to address difficulties with obtaining placement. SALES CONSULTANT explored the need for family support with placement and transportation for discharge. SALES CONSULTANT also acknowledge Malcom's expressed concern with mental health needs, and informed her of the impact of her medical needs including ongoing dialysis on obtaining psych placement. SALES CONSULTANT inquired into patient's income amount to explore board and care, but again discussed family members taking an active role in supporting discharge. SALES CONSULTANT will continue to be available as needed Addendum: 07/22/21 at 1710 by Debbie Stafford MSW SALES CONSULTANT Debbie contacted patient's daughter Malcom to inform her of continued efforts to locate placement for her mother. SALES CONSULTANT informed her patient was ready for discharge at this time, and the referrals that were submitted for housing would not be immediate and they would be contacting patient or daughter following discharge. Patient's daughter stated she would be contacting patient's mother Roslyn Porras to collaborate transportation for discharge. SALES CONSULTANT directed patient's daughter to contact nurses station with pickup time. SALES CONSULTANT provided update to patient's assigned RN Justine and demand inspector Marisa.
--- NOTE | 2021-07-22 15:17 | NUR ---
CRYSTALLIZER OPERATOR JEFFREY Lewis contacted and faxed patient info to Vanessa at [facility] phone: fax: for support with obtaining housing assistance. JEFFREY also contacted Raheem Proctor treatment specialist to obtain assistance with placement for patient
[2021-07-22 19:19] VITALS: BP_SYST 131
--- NOTE | 2021-07-22 19:30 | NUR ---
PT IS BEING PICKED UP BY FAMILY MEMBER D/T LACK OF SNF PLACEMENT. SPOKE WITH THE DAUGHTER ON THE PHONE. EDUCATED PT ABOUT CONTINUING OUTPATIENT DIALYSIS AND FOLLOWING UP WITH PCP WITHIN 1 WEEK. VERBALIZED UNDERSTANDING. WILL CONTINUE TO MONITOR
--- NOTE | 2021-07-23 07:52 | NUR ---
PHYSICAL THERAPY CO-SIGN The Physical Therapy Progress Notes documented by Fourth Officer have been reviewed. Reviewed/Co-Signed by: David Beach Documentation Done by: TYREL GANT PTA Addendum: 07/23/21 at 8433 by David Beach PT Amended: Links added.
== END 2021-07-22 19:25 | disposition home health service (06) | DRG 73 ==
LOC: SED 20:10 → STU 07-16 01:00 → SMU 07-19 17:21
PROVIDERS: ADMIT General Practice; ATTEND General Practice
PROC: 5A1D70Z Performance of Urinary Filtration, Intermittent, Less than 6 Hours Per Day (ICD-10-PCS; principal; 2021-07-16)
PROC: 5A1D70Z Performance of Urinary Filtration, Intermittent, Less than 6 Hours Per Day (ICD-10-PCS; 2021-07-17)
PROC: 5A1D70Z Performance of Urinary Filtration, Intermittent, Less than 6 Hours Per Day (ICD-10-PCS; 2021-07-19)
PROC: 5A1D70Z Performance of Urinary Filtration, Intermittent, Less than 6 Hours Per Day (ICD-10-PCS; 2021-07-21)
DX: G90.8 Other disorders of autonomic nervous system (principal); N18.6 End stage renal disease; N17.0 Acute kidney failure with tubular necrosis; G93.41 Metabolic encephalopathy; E87.1 Hypo-osmolality and hyponatremia; I12.0 Hypertensive chronic kidney disease with stage 5 chronic kidney disease or end stage renal disease; E44.1 Mild protein-calorie malnutrition; E11.22 Type 2 diabetes mellitus with diabetic chronic kidney disease; D63.8 Anemia in other chronic diseases classified elsewhere; E66.9 Obesity, unspecified; I70.90 Unspecified atherosclerosis; Z20.822 Contact with and (suspected) exposure to COVID-19; Z99.2 Dependence on renal dialysis; Z79.899 Other long term (current) drug therapy; Z68.34 Body mass index [BMI] 34.0-34.9, adult
CPT/HCPCS: 36415; 70450-TC; 71045; 76376; 80048; 80053; 82140; 82962; 83036; 83605; 83690; 83735; 83880; 84443; 84484; 85025; 87081; 90935; 90937; 92610-GN; 93005; 96374; 96375; 97110-GP; 97112-GP; 97116-GP; 97530-GP; 99291; G0378; G0482; J0360; J1644; J2060

== ENCOUNTER 2021-07-25 09:25 | Emergency (ER) | payer OTHER ==
[~2021-07-25] VITALS: Ht 162.6 cm; Wt 142.9 kg
[~2021-07-25 09:25] MED LIST: ATEN-168 PO; DIPH50CA38 PO; FAMO20VI PO; LORA-259 PO; ONDA-8 TL; PHE25 PO; SEVE800T8 PO; TRAM50TA2 PO; TRAZ300T11 PO; VIS25 PO
[2021-07-25 09:36] VITALS: BP_SYST 142
--- NOTE | 2021-07-25 09:41 | NUR ---
51 FEMALE AOX4, BROUGHT IN BY ALS WITH COMPLAINT OF ABDOMINAL PAIN 09/22. PT MISSED DIALYSIS ONE DAY AGO. PT REPORTS HX OF DEPRESSION, RENAL FAILURE, CHF, DM, HTN, AND LEFT FOOT AMPUTATION. PT HAS RIGHT SIDED DIALYSIS PORT. PT DENIES NAUSEA OR VOMITING. PT MAY REQUIRE CASE MANAGEMENT DUE TO LIVING IN A [employer] [address]. PT PENDING MD EVALUATION. PT PLACED ON ANIMAL CARE TECHNICIAN.
--- NOTE | 2021-07-25 09:50 | NUR ---
Dr. Aguayo at [facility] to examine pt.
--- NOTE | 2021-07-25 09:53 | NUR ---
Pt refuses blood work. Pt yelling at staff and Dr. Aguayo. Pt states " Just send me home". Pt continuing to refuse testing. Dr. Aguayo aware. impregnator electrolytic capacitors aware.
--- NOTE | 2021-07-25 10:06 | NUR ---
Dr. Aguayo at bedside to assess pt.
[2021-07-25] MEDS ORDERED: DIPHENHYDRAMINE HCL 25 MG CAPSULE PO ONE (10:15)
--- NOTE | 2021-07-25 12:23 | NUR ---
Pt yelling in hallway. Pt refusing all cares, states "Call my daughter, I just want to go home". Daughter of pt called. Daughter is still trying to find pt a ride home.
[2021-07-25 17:26] VITALS: BP_SYST 166
--- NOTE | 2021-07-25 17:31 | NUR ---
Pt discharged home. BLS transport arrived to take pt. Daughter arrived to ED to take pt home as well. Pt discharged home with daughter, EMT Alphonse escorted pt via wheelchair to private vehicle Patient given written and verbal discharge instructions and verbalizes understanding. ER MD discussed with patient the results and treatment provided. Patient in stable condition. ID arm band removed. Patient educated on pain management and to follow up with PMD. Pain Scale [0/10]. Opportunity for questions provided and answered. Medication side effect fact sheet provided.
== END 2021-07-25 17:26 | disposition home or self-care (01) ==
LOC: SED 09:25
DX: E11.22 Type 2 diabetes mellitus with diabetic chronic kidney disease (principal); I13.2 Hypertensive heart and chronic kidney disease with heart failure and with stage 5 chronic kidney disease, or end stage renal disease; N18.6 End stage renal disease; Z99.2 Dependence on renal dialysis; Z91.15 Patient's noncompliance with renal dialysis; I50.9 Heart failure, unspecified; I11.0 Hypertensive heart disease with heart failure; N18.9 Chronic kidney disease, unspecified; Z88.5 Allergy status to narcotic agent; Z88.6 Allergy status to analgesic agent; Z88.8 Allergy status to other drugs, medicaments and biological substances
CPT/HCPCS: 93005; 99283

== ENCOUNTER 2021-07-29 23:52 | Emergency (ER) | payer OTHER ==
[~2021-07-29] VITALS: Ht 162.6 cm; Wt 120.2 kg
[2021-07-29 23:55] VITALS: BP_SYST 164
--- NOTE | 2021-07-29 23:55 | NUR ---
Dr. Olivera assessing pt while pt on stretcher in ER.
--- NOTE | 2021-07-29 23:55 | NUR ---
Pt BIB BLS from [address] with c/o anxiety. Pt calm and cooperative, denies c/o C/P, no SOB, VSS, NAD. Pt placed to ER waiting room via W/C per FELICIA Olivera.
--- NOTE | 2021-07-30 00:21 | NUR ---
Pt states that she does not make urine. Dr. Olivera made aware.
--- NOTE | 2021-07-30 00:31 | NUR ---
EKG PRINTED AND GIVEN TO FOR INTERPRETATION.
--- NOTE | 2021-07-30 00:45 | NUR ---
Lab tito blood without issue.
[2021-07-30 00:55] LABS: BASOPHILS # (AUTO) 0.1 K/uL (0.0-0.2); BASOPHILS % (AUTO) 0.6 % (0.0-2.0); EOSINOPHILS # (AUTO) 0.4 K/uL (0.0-0.4); EOSINOPHILS % (AUTO) 4.2 % (0.0-4.0); HEMATOCRIT 27.2 % (36-48); LYMPHOCYTES % (AUTO) 23.2 % (20.5-51.5); MEAN CORPUSCULAR HEMOGLOBIN 28 pg (27-31); MEAN CORPUSCULAR HGB CONC 33 % (32-36); MEAN CORPUSCULAR VOLUME 83 fL (79.0-98.0); MONOCYTES # (AUTO) 0.5 K/uL (0.0-1.0); MONOCYTES % (AUTO) 5.9 % (1.7-9.3); NEUTROPHILS # (AUTO) 5.7 K/uL (1.8-7.7); NEUTROPHILS % (AUTO) 66.1 % (40.0-70.0); PLATELET COUNT (AUTO) 181 K/uL (130-430); RED BLOOD CELL COUNT(AUTO) 3.28 MIL/uL (4.2-6.2); WHITE BLOOD COUNT (AUTO) 8.6 K/uL (4.8-10.8)
[2021-07-30 01:16] LABS: ANION GAP 15 (5-15); CALCIUM 8.6 mg/dL (8.4-11.0); CHLORIDE 97 mmol/L (98-107); GLUCOSE 247 mg/dL (70-99); POTASSIUM 5.1 mmol/L (3.5-5.1); SODIUM SERUM 136 mmol/L (136-145); UREA NITROGEN, BLOOD 83 mg/dL (8-21)
[2021-07-30 01:30] LABS: ALBUMIN 3.3 g/dL (3.4-4.8); ASPARTATE AMINOTRANSFERASE 10 U/L (10-37); TOTAL BILIRUBIN 0.2 mg/dL (0.0-1.0)
[2021-07-30 01:32] LABS: ALCOHOL, BLOOD < 3 mg/dL (<10); GFR AFRICAN AMERICAN 4 mL/min (>90)
[2021-07-30 01:36] LABS: CREATININE 12.71 mg/dL (0.55-1.30)
[2021-07-30 01:42] LABS: ALANINE AMINOTRANSFERASE 14 U/L (12-78)
--- NOTE | 2021-07-30 03:00 | NUR ---
Pt sitting in W/C in ER waiting room, ISABEL.
--- NOTE | 2021-07-30 05:14 | NUR ---
Dr. Olivera assessing pt in triage room. Pt states that she takes Ativan 1 mg PO BID, last one taken earlier last night. Pt calm, cooperative, and verbalizes improvent in Anxiety symptoms, but states that the Ativan is beginning to wear off. Pt denies c/o C/P or SOB. Pt returned to ER waiting room in stable condition and to be medicated with Ativan 1 mg PO.
[2021-07-30] MEDS ORDERED: LORazepam 1 MG TABLET PO ONE (05:15)
[2021-07-30 06:10] VITALS: BP_SYST 168
--- NOTE | 2021-07-30 06:10 | NUR ---
Patient given written and verbal discharge instructions and verbalizes understanding. ER MD discussed with patient the results and treatment provided. Patient in stable condition. ID arm band removed. No Rx given. Patient educated on pain management and to follow up with PMD. Pain Scale 0/10. Opportunity for questions provided and answered. Medication side effect fact sheet provided. Pt leaves via W/C in c/o taxi service to return to [facility].
== END 2021-07-30 06:10 | disposition home or self-care (01) ==
LOC: SED 23:52
DX: F41.9 Anxiety disorder, unspecified (principal); I12.0 Hypertensive chronic kidney disease with stage 5 chronic kidney disease or end stage renal disease; N18.6 End stage renal disease; E11.9 Type 2 diabetes mellitus without complications; Z88.6 Allergy status to analgesic agent; Z88.5 Allergy status to narcotic agent; Z88.8 Allergy status to other drugs, medicaments and biological substances; Z79.899 Other long term (current) drug therapy
CPT/HCPCS: 36415; 80053; 85025; 93005; 99284; G0482

== ENCOUNTER 2021-08-05 12:39 | Inpatient (IN) | payer OTHER ==
[~2021-08-05] VITALS: Ht 162.6 cm; Wt 106.1 kg
--- NOTE | 2021-08-05 12:56 | NUR ---
BROUGHT IN BY [facility]
--- NOTE | 2021-08-05 12:57 | NUR ---
OFFICER FRAHAT SPEAKING WITH PTS FAMILY ON PHONE.
[2021-08-05 13:00] VITALS: BP_SYST 183
[2021-08-05 13:21] LABS: BASOPHILS # (AUTO) 0.1 K/uL (0.0-0.2); BASOPHILS % (AUTO) 0.7 % (0.0-2.0); EOSINOPHILS # (AUTO) 0.3 K/uL (0.0-0.4); EOSINOPHILS % (AUTO) 3.3 % (0.0-4.0); HEMATOCRIT 27.7 % (36-48); LYMPHOCYTES # (AUTO) 2.2 K/uL (1.0-5.5); LYMPHOCYTES % (AUTO) 27.2 % (20.5-51.5); MEAN CORPUSCULAR HEMOGLOBIN 27 pg (27-31); MEAN CORPUSCULAR HGB CONC 33 % (32-36); MEAN CORPUSCULAR VOLUME 83 fL (79.0-98.0); MONOCYTES # (AUTO) 0.6 K/uL (0.0-1.0); MONOCYTES % (AUTO) 6.8 % (1.7-9.3); NEUTROPHILS # (AUTO) 5.1 K/uL (1.8-7.7); PLATELET COUNT (AUTO) 185 K/uL (130-430); RED BLOOD CELL COUNT(AUTO) 3.33 MIL/uL (4.2-6.2); RED CELL DISTRIBUTION WIDTH 17.1 % (9.0-15.0); WHITE BLOOD COUNT (AUTO) 8.3 K/uL (4.8-10.8)
--- NOTE | 2021-08-05 13:30 | NUR ---
Patient to ER bed 05 to gown for evaluation. Side rails up.
[2021-08-05 13:46] LABS: ANION GAP 13 (5-15); CALCIUM 8.3 mg/dL (8.4-11.0); CHLORIDE 97 mmol/L (98-107); GLUCOSE 191 mg/dL (70-99); POTASSIUM 4.2 mmol/L (3.5-5.1); SODIUM SERUM 136 mmol/L (136-145); UREA NITROGEN, BLOOD 46 mg/dL (8-21)
--- NOTE | 2021-08-05 13:58 | NUR ---
Data Center Solutions Architect PATIENT TRANSPORTATION DRIVER called ED and spoke to Annette Mejia who stated pt. is homeless, was kicked out of [employer], family does not want anything to do with her, was brougt in by [employer] and is on a 5150 hold. Rn stated pt. will be in ER for a while and to not come down. PATIENT TRANSPORTATION DRIVER will remain available as needed.
[2021-08-05] MEDS ORDERED: LORazepam 1 MG TABLET PO ONE (14:00)
--- NOTE | 2021-08-05 14:00 | NUR ---
patient AAOx3 c/o weakness d/t missed dialysis. Pt was left by her daughter and abandoned by her family at a [address]. hx of ESRD (), last dialysis was monday. noted w/right AV fistula. hx of HTN, DM, legally blind and left sided toe amputation. Pt currently on a 5150 hold for GD put on by PD. She does feel mildly short of breath. denies any CP, N/V/D. pt is very irritable and crying, stating she wants her daughter.
[2021-08-05 14:01] LABS: ALANINE AMINOTRANSFERASE 8 U/L (12-78); ALBUMIN 3.3 g/dL (3.4-4.8); ASPARTATE AMINOTRANSFERASE 7 U/L (10-37); TOTAL BILIRUBIN 0.3 mg/dL (0.0-1.0)
[2021-08-05 14:03] LABS: ALCOHOL, BLOOD < 3 mg/dL (<10); GFR AFRICAN AMERICAN 5 mL/min (>90)
[2021-08-05 14:04] LABS: ACETAMINOPHEN < 1 ug/mL (1-30); CREATININE 10.72 mg/dL (0.55-1.30)
--- NOTE | 2021-08-05 15:15 | NUR ---
Notified ED Admitting regaarding Dr. Mitchell's request for admission/transfer. Per , pt is stable for transfer. Will contact associate agent insurance sales regarding this matter. PER FACESHEET: ANISH SR PLAN-[facility]
--- NOTE | 2021-08-05 15:20 | NUR ---
Note emily in [facility] - 08/05/21 at 1745 by [email or web address] Transfer to [facility] via ACLS protocol. Licensed nurse present. IV present no signs or symptoms of infiltration.
--- NOTE | 2021-08-05 16:29 | NUR ---
Admit bed requested Patient will be admitted to care of Dr. Gonzalez. Admitted to tele unit. Diagnosis Renal Failure Inpatient (Yes or No) yes Observation (Yes or No) NO Orientation concerns or request close to nursing station (Yes or No) NO Covid Status Negative On vent or bipap Negative Isolation requirements None Needs a sitter Yes From Home (Yes or if No enter name of facility) Homeless Requires Dialysis (Yes or No) Yes Med Rec Completed (Yes of No) Yes
[2021-08-05] MEDS ORDERED: ZOLPIDEM TARTRATE 5 MG TABLET PO PRN (17:00)
[2021-08-05] MEDS ORDERED: MUPIROCIN 2% TOPICAL OINTMENT 22 GM NS PRN (17:00)
[2021-08-05] MEDS ORDERED: cloNIDine HCL 0.2 MG TABLET PO PRN (17:00)
[2021-08-05] MEDS ORDERED: MAGNESIUM SULFATE 50 ML IV PRN (17:00)
[2021-08-05] MEDS ORDERED: POTASSIUM CHLORIDE 20 MEQ TAB.PRT.SR PO PRN (17:00)
[2021-08-05] MEDS ORDERED: LORazepam 2 MG/ML VIAL IVP PRN (17:00)
[2021-08-05] MEDS ORDERED: NIFEdipine 30 MG TAB.ER.24 PO ONE (17:15)
--- NOTE | 2021-08-05 17:20 | NUR ---
Transfer to TELE via ACLS protocol. Licensed nurse present. IV present no signs or symptoms of infiltration.
--- NOTE | 2021-08-05 17:28 | NUR ---
CONSULTATION PAGED REASON FOR CONSULTATION:ESRD WAS CONSULT CALLED?Y -PERSON WHO WAS NOTIFIED:EMILEE CONSULTING PHYSICIAN:ODILON MANCINI ELECTRONIC CONTROLS REPAIRER SUPERVISOR SPECIALTY:NEPHRO ELECTRONIC CONTROLS REPAIRER SUPERVISOR PHONE NUMBER:[phone] REQUESTING PHYSICIAN: KATEY FAUST
[2021-08-05 17:42] VITALS: BP_SYST 173
[2021-08-05 18:36] VITALS: BP_SYST 182
[2021-08-05] MEDS: SEVELAMER CARBONATE 800 MG TABLET PO SCH (18:39)
--- NOTE | 2021-08-05 19:01 | NUR ---
PT JUST CAME IN APPROX 45 AGO AND ASSESSSED BY ANOTHER ASSISTING RN, I SPOKE WITH PT AFTER ADN VS TAKEN AND STABLE ACCORDING TO BASELINE. MEDS GIVEN ADN SBAR COMPLETED FOR STORAGE CENTER MANAGER RN. COMING ON SHIFT NOW. NO RESP DISTRESS AND NO C/O PAIN, NO GI/ ISSUES AND CARE RESUMED, PERSONAL WHEELCHAIR AT BEDSIDE. WATER GIVEN AND AT BEDSIDE .
[2021-08-05 20:40] VITALS: BP_SYST 181
[2021-08-05] MEDS: traZODone HCL 50 MG TABLET (DESYREL) PO SCH (22:55)
[2021-08-05] MEDS: DIPHENHYDRAMINE HCL 50 MG CAPSULE PO SCH (22:55)
[2021-08-05] MEDS: ATENOLOL 50 MG TABLET (TENORMIN) PO SCH (22:55)
[2021-08-05] MEDS: HEPARIN SODIUM,PORCINE 5,000 UNITS/ML VIAL SUBCUT SCH (22:58)
[2021-08-06 01:10] VITALS: BP_SYST 160
[2021-08-06 06:14] LABS: BASOPHILS # (AUTO) 0.1 K/uL (0.0-0.2); BASOPHILS % (AUTO) 0.7 % (0.0-2.0); EOSINOPHILS # (AUTO) 0.3 K/uL (0.0-0.4); EOSINOPHILS % (AUTO) 3.4 % (0.0-4.0); HEMATOCRIT 25.8 % (36-48); HEMOGLOBIN 8.5 g/dL (12.0-16.0); LYMPHOCYTES # (AUTO) 2.5 K/uL (1.0-5.5); MEAN CORPUSCULAR HEMOGLOBIN 28 pg (27-31); MEAN CORPUSCULAR HGB CONC 33 % (32-36); MEAN CORPUSCULAR VOLUME 83 fL (79.0-98.0); MONOCYTES # (AUTO) 0.7 K/uL (0.0-1.0); MONOCYTES % (AUTO) 8.3 % (1.7-9.3); NEUTROPHILS # (AUTO) 4.4 K/uL (1.8-7.7); NEUTROPHILS % (AUTO) 55.6 % (40.0-70.0); PLATELET COUNT (AUTO) 175 K/uL (130-430); RED BLOOD CELL COUNT(AUTO) 3.11 MIL/uL (4.2-6.2); RED CELL DISTRIBUTION WIDTH 16.8 % (9.0-15.0); WHITE BLOOD COUNT (AUTO) 7.8 K/uL (4.8-10.8)
[2021-08-06 06:24] LABS: CALCIUM 7.7 mg/dL (8.4-11.0); POTASSIUM 4.5 mmol/L (3.5-5.1)
--- NOTE | 2021-08-06 07:30 | NUR ---
Closing Patient resting in bed, no distress noted, no complaint of pain. Personal walker at bedside. Call light in reach, fall and safety precautions maintained.
--- NOTE | 2021-08-06 07:30 | NUR ---
OPENING NOTES: Received patient in bed, alert, verbally responsive and able to make her needs known. Safety precaution observed. Will continue to monitor.
[2021-08-06 07:31] LABS: CREATININE 11.96 mg/dL (0.55-1.30)
[2021-08-06 08:00] VITALS: BP_SYST 138
[2021-08-06] MEDS ORDERED: DEXTROSE 50% JECT 50 ML DISP.SYRIN IVP PRN (09:00)
[2021-08-06] MEDS: NIFEdipine 30 MG TAB.ER.24 PO SCH (09:00)
--- NOTE | 2021-08-06 09:00 | NUR ---
Pt refused IV reinsertion. IV was pulled out. Explained to patient the need to reinsert IV but refused.
[2021-08-06] MEDS: DIPHENHYDRAMINE HCL 50 MG CAPSULE PO SCH (10:00)
[2021-08-06] MEDS: SEVELAMER CARBONATE 800 MG TABLET PO SCH ×3 (10:00→17:24)
[2021-08-06] MEDS: HEPARIN SODIUM,PORCINE 5,000 UNITS/ML VIAL SUBCUT SCH ×2 (10:03→22:16)
--- NOTE | 2021-08-06 11:24 | NUR ---
PHYSICAL THERAPY EVALUATION COMPLETED. PATIENT NEEDS ASSISTANCE TO AMBULATE WITH THE FWW DUE TO WEAKNESS AND BEING LEGALLY BLIND. SHE IS SAFE FOR NURSING TO ASSIST HER.
[2021-08-06] MEDS: INSULIN LISPRO SLIDING SCALE 100 UNITS/ML VIAL (humaLOG) SUBCUT PRN ×3 (11:31→22:27)
[2021-08-06 12:00] VITALS: BP_SYST 142
--- NOTE | 2021-08-06 15:56 | NUR ---
Dietitian Recommendations * Renal, CCHO diet, Glucerna BID (ONS yields 440 kcal/day, 20 gm protein/day) LP, RD Please refer to Nutrition Assessment for details. Addendum: 08/06/21 at [address] Amended: Links added.
--- NOTE | 2021-08-06 15:58 | NUR ---
Discharge Planning: DCP faxd pt referral to [facility] F#[phone] P#[phone] DCP to follow up
[2021-08-06 17:00] VITALS: BP_SYST 136
--- NOTE | 2021-08-06 17:40 | NUR ---
Hemodialysis at bedside: HD out 2 liters. No s/s of acute distress noted. Stable vs.
--- NOTE | 2021-08-06 18:47 | NUR ---
CLOSING NOTES: Patient alert, oriented and verbally responsive. HD done with 2000 ml out, needs met throughout shift, uses bedside commode, no acute distress noted, safety precautions observed, bed alarm on, side rails up, call light within reach. Will continue to monitor until awake overnight counselor RN.
[2021-08-06 20:20] VITALS: BP_SYST 139
[2021-08-06] MEDS: ATENOLOL 50 MG TABLET (TENORMIN) PO SCH (22:17)
[2021-08-06] MEDS: DIPHENHYDRAMINE HCL 25 MG CAPSULE PO SCH (22:17)
[2021-08-06] MEDS: traZODone HCL 50 MG TABLET (DESYREL) PO SCH (22:17)
[2021-08-07 00:30] VITALS: BP_SYST 135
--- NOTE | 2021-08-07 07:40 | NUR ---
Closing Patient resting in bed, no distress noted, no complaint of pain. Blood sugar 137. Refused labs this morning. Personal walker at bedside. Call light in reach, fall and safety precautions maintained.
[2021-08-07 08:00] VITALS: BP_SYST 155
[2021-08-07] MEDS: SEVELAMER CARBONATE 800 MG TABLET PO SCH ×5 (08:00→18:00)
--- NOTE | 2021-08-07 08:00 | NUR ---
Opening Notes Patient is sitting up in bed awake. A/O x4. No apparent distress noted. Call light within reach. Safety and fall precautions in place. Provided patient with warm blanket as requested. All needs met.
--- NOTE | 2021-08-07 09:00 | NUR ---
Patient Refused Medication Patient refused medication. Encouraged patient to take, patient continued to refuse.
[2021-08-07] MEDS: DIPHENHYDRAMINE HCL 25 MG CAPSULE PO SCH ×2 (09:24→22:03)
[2021-08-07] MEDS: NIFEdipine 30 MG TAB.ER.24 PO SCH (09:24)
[2021-08-07] MEDS: HEPARIN SODIUM,PORCINE 5,000 UNITS/ML VIAL SUBCUT SCH ×2 (09:26→22:13)
[2021-08-07] MEDS: INSULIN LISPRO SLIDING SCALE 100 UNITS/ML VIAL (humaLOG) SUBCUT PRN ×3 (11:30→22:13)
[2021-08-07 12:10] VITALS: BP_SYST 138
--- NOTE | 2021-08-07 12:16 | NUR ---
KNITTING MACHINE OPERATOR AUTOMATIC met with Pt. at bedside, she was alert and pleasant today. Pt. reported that she is being cooperative with staff and has had a dialysis tx since her stay. Pt. was brought in by Artem SAENZ on a 5150 hold for GD. Pt. explained she was kicked out of a [employer] [address]. Pt. reported that she was not always following up with dialysis in the community and was unhoused off and on making it difficult for her address her medical issues. Pt. is blind, ambulates using a wheelchair, reported little activity in the community, she supports herself with SSI and family is not able to provide ongoing care. Pt. tentative DC plan is for a transfer to SNF. DC exercise planner has been working on placement. Pt. has a Hx of untreated Bipolar Disorder, she is not currently in MH Tx. KNITTING MACHINE OPERATOR AUTOMATIC offered her a referral to [facility] and she was accepting of services. KNITTING MACHINE OPERATOR AUTOMATIC generated a referral of Pt. behalf for further assistance post D/C. Pt. talkative and receptive to this customs entry writer, she relayed no further SS need at this time.
[2021-08-07 16:10] VITALS: BP_SYST 140
--- NOTE | 2021-08-07 18:55 | NUR ---
Note Attempted to insert an IV for patient three different times throughout the shift patient refused. Patient was uncooperative throughout shift.
--- NOTE | 2021-08-07 19:31 | NUR ---
Fall Patient states she lowered herself down to the ground because she wanted juice and crackers and was going to look for some. Patient states she did not fall and did not hurt herself anywhere. I assessed patient, skin is intact. Re-oriented patient to call light, patient verbalized understanding. She is aware she should use the call light when needing to get up. Ana RN, Kristal RN, and Zulay RN assisted with situation and putting patient back to bed. Vitals were taken immediately after incident, vitals are stable. Ana COLINDRES assisted with incident report.
--- NOTE | 2021-08-07 19:31 | NUR ---
FALL Nursing staff saw patient crawling in the doorway of her room. Patient stated that she got herself out of bed and onto the ground and crawled to the door because no one was answering the call light, patient stated "I didn't fall, I just wanted some juice and gram crackers". Patient assisted into a wheelchair by staff members and then assisted back into bed. No c/o pain or discomfort, no s/s injury to the patient. Side rails up x3, bed alarm on and pt asked to use the call light and not get out of bed for safety-pt stated she would and that she would yell for someone if no one answers the call light.
--- NOTE | 2021-08-07 19:40 | NUR ---
Closing Note Patient is in bed awake. Bed alarm activated. No apparent distress noted. Reminded patient to use call light when needing assistance. Call light within reach. Safety and fall precautions in place. All needs met. Endorsed care to fast food shift supervisor BERNADINE Giraldo.
[2021-08-07 20:00] VITALS: BP_SYST 142
[2021-08-07] MEDS: traZODone HCL 50 MG TABLET (DESYREL) PO SCH (22:03)
[2021-08-07] MEDS: ATENOLOL 50 MG TABLET (TENORMIN) PO SCH (22:04)
[2021-08-08 01:48] VITALS: BP_SYST 118
[2021-08-08 06:46] LABS: BASOPHILS # (AUTO) 0.1 K/uL (0.0-0.2); BASOPHILS % (AUTO) 0.7 % (0.0-2.0); EOSINOPHILS # (AUTO) 0.3 K/uL (0.0-0.4); EOSINOPHILS % (AUTO) 3.9 % (0.0-4.0); HEMATOCRIT 26.6 % (36-48); HEMOGLOBIN 8.8 g/dL (12.0-16.0); LYMPHOCYTES # (AUTO) 2.4 K/uL (1.0-5.5); MEAN CORPUSCULAR HEMOGLOBIN 28 pg (27-31); MEAN CORPUSCULAR HGB CONC 33 % (32-36); MEAN CORPUSCULAR VOLUME 84 fL (79.0-98.0); MONOCYTES # (AUTO) 0.6 K/uL (0.0-1.0); MONOCYTES % (AUTO) 7.3 % (1.7-9.3); NEUTROPHILS # (AUTO) 4.3 K/uL (1.8-7.7); NEUTROPHILS % (AUTO) 56.1 % (40.0-70.0); PLATELET COUNT (AUTO) 165 K/uL (130-430); RED BLOOD CELL COUNT(AUTO) 3.16 MIL/uL (4.2-6.2); RED CELL DISTRIBUTION WIDTH 16.9 % (9.0-15.0); WHITE BLOOD COUNT (AUTO) 7.6 K/uL (4.8-10.8)
[2021-08-08 07:30] VITALS: BP_SYST 152
[2021-08-08 07:30] LABS: CALCIUM 8.3 mg/dL (8.4-11.0)
--- NOTE | 2021-08-08 07:30 | NUR ---
Closing Patient resting in bed, no distress noted. No current IV access. After one unsuccessful attempt at IV insertion, patient refused further attempts, stating "they always have a hard time so I know it's not going to work." Otherwise cooperative with plan of care. Call light in reach, exit alarm on, fall and safety precautions maintained.
[2021-08-08] MEDS: SEVELAMER CARBONATE 800 MG TABLET PO SCH ×3 (07:48→18:59)
[2021-08-08] MEDS: DIPHENHYDRAMINE HCL 25 MG CAPSULE PO SCH ×2 (09:32→20:21)
[2021-08-08] MEDS: NIFEdipine 30 MG TAB.ER.24 PO SCH (09:32)
[2021-08-08] MEDS: HEPARIN SODIUM,PORCINE 5,000 UNITS/ML VIAL SUBCUT SCH ×2 (09:33→20:28)
[2021-08-08 10:41] LABS: POTASSIUM 6.5 mmol/L (3.5-5.1)
[2021-08-08 10:43] LABS: CREATININE 11.69 mg/dL (0.55-1.30)
--- NOTE | 2021-08-08 11:07 | NUR ---
Paged Dr. Swan Paged Dr. Swan for critical labs as charted.
--- NOTE | 2021-08-08 11:10 | NUR ---
Spoke with Spoke with regarding critical labs. New orders given and entered.
[2021-08-08] MEDS: SODIUM POLYSTYRENE SULFONATE 15 GM/60 ML UDBTL PO ONE ×2 (11:15→12:26)
[2021-08-08] MEDS ORDERED: CALCIUM GLUCONATE 1 GM/10 ML VIAL IVP ONE (11:45)
[2021-08-08 12:00] VITALS: BP_SYST 155
[2021-08-08] MEDS: INSULIN LISPRO SLIDING SCALE 100 UNITS/ML VIAL (humaLOG) SUBCUT PRN ×2 (12:28→20:28)
[2021-08-08] MEDS ORDERED: CALCIUM GLUCONATE 4.65 MEQ in NS 100 ML IV ONE (12:30)
--- NOTE | 2021-08-08 13:28 | NUR ---
Paged Regarding medication refusal by patient regardless of encouragement and explanation of importance.
--- NOTE | 2021-08-08 15:38 | NUR ---
Opening Note Patient is sitting up in bed awake. A/O x4. No apparent distress noted. Vitals as charted. Call light within reach. Safety and fall precautions in place. Oriented patient to call light light and reminded her to call when needing assistance. All needs met. Addendum: 08/08/21 at 1950 by Lacy Charles RN Note meant to be entered at 0730
--- NOTE | 2021-08-08 15:48 | NUR ---
Dialysis Dialysis began at 1548 by Saima COLINDRES
[2021-08-08 16:00] VITALS: BP_SYST 110
[2021-08-08 19:00] VITALS: BP_SYST 112
--- NOTE | 2021-08-08 19:53 | NUR ---
Closing Note Patient is sitting up in bed eating dinner. A/O x4. No apparent distress noted. Call light within reach. Safety and fall precautions in place. All needs met. Endorsed care to roller pneumatic BRENADINE Flynn.
--- NOTE | 2021-08-08 20:00 | NUR ---
pt.assessed.v/s assessed values wnl.pt.presents hx dialysis.h/d access location:rt.forearm;av-shunt. pt. presents visual challenge.pt.legal blind bilateral.i have apprised the pt.that snacks/beverages are available w/in the shift. pt.posited requests snacks/juice.pt.capable to reposition self.no c/o pain,nausea.general status stable. respiratory status stable;unlabored@room air.call light/telephone w/in access of the pt.
[2021-08-08] MEDS: ATENOLOL 50 MG TABLET (TENORMIN) PO SCH (20:23)
[2021-08-08] MEDS: traZODone HCL 50 MG TABLET (DESYREL) PO SCH (20:25)
--- NOTE | 2021-08-08 20:30 | NUR ---
blood glucose assessed value;219mg/dl.
--- NOTE | 2021-08-08 21:00 | NUR ---
2100p medications administered.pt.capable to ingest the medications w/out difficulty.no c/o pain,nausea.call light/telephone placed w/in access of the pt.
--- NOTE | 2021-08-08 22:00 | NUR ---
pt.assessed.pt.quiescent,resting.no c/o pain,nausea.pt.requested snacks.no pt.capable to reposition self. call light/ telephone w/in access of the pt.
--- NOTE | 2021-08-09 | NUR ---
pt.assessed.v/s assessed values wnl.no c/o pain,nausea.no requests posited@this hour.call light/telephone w/in access of the pt.
--- NOTE | 2021-08-09 02:00 | NUR ---
pt.assessed.pt.presents quiescent affect,somnolent.per flacc pain mgx pt.absent facial grimaces/body posturing.pt.capable to reposition self.call light/telephone w/in access of the pt.
--- NOTE | 2021-08-09 02:00 | NUR ---
pt.assessed.pt.presents quiescent affect;calm,somnolent.per flacc pain mgx pt.absent facial grimaces/body posturing.pt.capable to reposition self.call light/telephone w/in access of the pt.
--- NOTE | 2021-08-09 06:00 | NUR ---
pt.assessed.pt.quiescent,resting.blood glucose assessed value:130MG/DL.no c/o pain,nausea. no requests POSITEd@THis HoUR.pt.capable to reposition self.call light/telephone w/in access of the pt.
[2021-08-09 06:06] LABS: BASOPHILS % (AUTO) 0.7 % (0.0-2.0); EOSINOPHILS # (AUTO) 0.3 K/uL (0.0-0.4); HEMATOCRIT 25.9 % (36-48); HEMOGLOBIN 8.7 g/dL (12.0-16.0); LYMPHOCYTES # (AUTO) 1.9 K/uL (1.0-5.5); LYMPHOCYTES % (AUTO) 27.7 % (20.5-51.5); MEAN CORPUSCULAR HEMOGLOBIN 28 pg (27-31); MEAN CORPUSCULAR HGB CONC 34 % (32-36); MEAN CORPUSCULAR VOLUME 83 fL (79.0-98.0); MONOCYTES # (AUTO) 0.5 K/uL (0.0-1.0); NEUTROPHILS % (AUTO) 58.6 % (40.0-70.0); PLATELET COUNT (AUTO) 162 K/uL (130-430); RED BLOOD CELL COUNT(AUTO) 3.11 MIL/uL (4.2-6.2); RED CELL DISTRIBUTION WIDTH 16.6 % (9.0-15.0); WHITE BLOOD COUNT (AUTO) 6.8 K/uL (4.8-10.8)
[2021-08-09 06:32] LABS: CALCIUM 8.2 mg/dL (8.4-11.0); PHOSPHORUS 6.5 mg/dL (2.7-4.5); POTASSIUM 5.3 mmol/L (3.5-5.1)
[2021-08-09 06:50] LABS: CREATININE 8.51 mg/dL (0.55-1.30)
[2021-08-09] MEDS: SEVELAMER CARBONATE 800 MG TABLET PO SCH ×3 (08:00→17:43)
[2021-08-09] MEDS: NIFEdipine 30 MG TAB.ER.24 PO SCH (09:29)
[2021-08-09] MEDS: DIPHENHYDRAMINE HCL 25 MG CAPSULE PO SCH ×2 (09:29→22:51)
--- NOTE | 2021-08-09 09:30 | NUR ---
CM: SPOKE WITH DCP DAIANA , STATED THAT APS EVAL FOR [place] AND [place] HAVE BEEN DONE AND REFERRALS SENT OUT, SHE ALSO MENTIONED CONSIDERING RECUPERATIVE CARE VS SNF, BOTH WILL BE LOOK INTO AND A DECISION MADE, ALSO PT WILL NEED A PSYCH EVAL PART OF HER ASSESSMENT.
[2021-08-09] MEDS: HEPARIN SODIUM,PORCINE 5,000 UNITS/ML VIAL SUBCUT SCH ×3 (09:32→22:53)
[2021-08-09 11:29] VITALS: BP_SYST 146
[2021-08-09] MEDS: traMADol HCL HCL 50 MG TABLET (ULTRAM) PO PRN (11:31)
[2021-08-09] MEDS: LORazepam 1 MG TABLET PO PRN (15:00)
--- NOTE | 2021-08-09 16:14 | NUR ---
CONSULTATION PAGED REASON FOR CONSULTATION:PSYCH WAS CONSULT CALLED?Y -PERSON WHO WAS NOTIFIED:GLORIA CONSULTING PHYSICIAN:BETTY LEMA RATTLESNAKE FARMER SPECIALTY:PSYCHE RATTLESNAKE FARMER PHONE NUMBER:[phone] REQUESTING PHYSICIAN:LATOSHA MERCHANT
--- NOTE | 2021-08-09 19:00 | NUR ---
Miss Chakraborty has been assessed as indicated. She has difficulty with time perception. She feels that she has waited a very long period of and becomes highly agitated and begins to yell loudly and demand that staff respond to her. When in fact only a few minutes have passed. This gag writer has attempted to make her aware of this disparity. She is also forgetful and paranoid. This evening Miss Chkaraborty had an unfortunate incident. There were wipes left at the bedside when she declined a bath this evening. When she was served her dinner she was informed that there were tortillas on her plate. when she was eating she mistook one of the wipes for a tortilla and took a bite. Miss Chakraborty was very upset by this. she was very concerned that someone had done this on purpose. It took a very long time for this gag writer to calm her so that she could recall the wipes had been left from the bath she declined. Once she recalled this she felt embarrassed. stating "I feel like a fool" All efforts have been made to accommodate and calm miss Chakraborty
--- NOTE | 2021-08-09 19:15 | NUR ---
Handoff has been given top Pernell
[2021-08-09] MEDS: traZODone HCL 50 MG TABLET (DESYREL) PO SCH (22:49)
[2021-08-09] MEDS: ATENOLOL 50 MG TABLET (TENORMIN) PO SCH (22:51)
[2021-08-10] VITALS (7 sets, daily range): BP systolic 105–152
--- NOTE | 2021-08-10 08:00 | NUR ---
INITIAL NOTES Patient in bed resting, with eyes closed. Patient wants to rest without disturbance at this time. Safety precautions in place and call light within reach.
--- NOTE | 2021-08-10 09:30 | NUR ---
Notes Patient is being cooperative at this time. Patient is stable, no distress or pain noted.
[2021-08-10] MEDS: SEVELAMER CARBONATE 800 MG TABLET PO SCH ×3 (10:30→17:11)
[2021-08-10] MEDS: HEPARIN SODIUM,PORCINE 5,000 UNITS/ML VIAL SUBCUT SCH ×2 (10:30→20:42)
[2021-08-10] MEDS: DIPHENHYDRAMINE HCL 25 MG CAPSULE PO SCH ×2 (10:31→20:40)
[2021-08-10] MEDS: NIFEdipine 30 MG TAB.ER.24 PO SCH (10:32)
--- NOTE | 2021-08-10 11:30 | NUR ---
Notes Patient is having dialysis. No s/s of distress noted. Denies pain. in bed, watching TV.
[2021-08-10] MEDS: INSULIN LISPRO SLIDING SCALE 100 UNITS/ML VIAL (humaLOG) SUBCUT PRN ×2 (11:42→20:43)
--- NOTE | 2021-08-10 15:12 | NUR ---
IMMIGRATION COORDINATOR JEFFREY Browningette met with patient at bedside. Patient was awake, alert and oriented x4. NSW Debbie reintroduced herself, and patient stated she remembered from last inpatient stay. Current concern- Patient was residing in Mot 6, but no longer able to sustain payments. Patient's family has also expressed not wanting to continue to care for patient due to her prior refusal of care and "not wanting to help herself" Housing- According to patient, she was transported to [facility] by jeanna Krystle following previous discharge. She shared she was unable to continue to paying motel, and according to patient she was left outside. Patient expressed to HIGH WORKER that she was being more cooperative "this time", and understands her refusal of different treatments and behavior towards staff impacted her ability to locate placements that would benefit and address her health needs. HIGH WORKER acknowledged her new outlook, and utilized empathetic and reflective listening techniques when she expressed her desire to get better and "do whatever the doctors and nurses need her to do so she can be placed somewhere". HIGH WORKER informed patient efforts were underway to locate SNF placement as well as [facility] programs. HIGH WORKER will continue to be available as needed
--- NOTE | 2021-08-10 16:30 | NUR ---
Notes Dialysis has finished. 2.5 L of output. Patient is stable. No distress noted. Safety Precautions in place.
--- NOTE | 2021-08-10 17:30 | NUR ---
received bedside report. pt in bed. pt yelled at me to get out of room. attempted to calm pt down. left room. made charge nurse aware of the situation. pt continued to yell for charge nurse. pt then got out of bed and started to crawl to the nurses station yelling for charge nurse. charge nurse at bedside. house sup at bedside. pt continue to yell and crawled back to bed. pt helped back to bed by charge nurse and house sup. assignment changed and report given to laurent nurse jay Addendum: 08/10/21 at 2012 by Osbaldo Barbosa RN @[phone]
--- NOTE | 2021-08-10 18:45 | NUR ---
Closing Notes Patient in bed, eating dinner. Safety precautions in place and call light within reach. Will endorse care to incoming nurse.
--- NOTE | 2021-08-10 19:30 | NUR ---
received bedside report. pt in bed. pt yelled at me to get out of room. attempted to calm pt down. left room. made charge nurse aware of the situation. pt continued to yell for charge nurse. pt then got out of bed and started to crawl to the nurses station yelling for charge nurse. charge nurse at bedside. house sup at bedside. pt continue to yell and crawled back to bed. pt helped back to bed by charge nurse and house sup. assignment changed and report given to new nurse jay
[2021-08-10] MEDS: ATENOLOL 50 MG TABLET (TENORMIN) PO SCH (20:40)
[2021-08-10] MEDS: traZODone HCL 50 MG TABLET (DESYREL) PO SCH (20:45)
[2021-08-11 00:04] VITALS: BP_SYST 121
--- NOTE | 2021-08-11 02:54 | NUR ---
. 1999 Pt. received from other nurse, pt uncooperative and verbally abusive. Introduced self, pt. to get exceptional personal care and to be monitored. 2029 Pt. given a bedbath, and clean clothes, and bedding. Pt. more cooperative and less aggressive, took noc meds. 0030 Pt. sleeping, vss 0200 No distress, sleeping
--- NOTE | 2021-08-11 05:07 | NUR ---
Follow up consult for Dr. Sotomayor was called Left a message to [facility] for Consult.
--- NOTE | 2021-08-11 06:11 | NUR ---
0600 Pt. needs met this shift, pt. slept well, vss, no acute distress. Call light in reach.
[2021-08-11 08:33] VITALS: BP_SYST 102
[2021-08-11 09:27] LABS: BASOPHILS # (AUTO) 0.1 K/uL (0.0-0.2); BASOPHILS % (AUTO) 1.2 % (0.0-2.0); EOSINOPHILS # (AUTO) 0.3 K/uL (0.0-0.4); EOSINOPHILS % (AUTO) 4.7 % (0.0-4.0); HEMATOCRIT 26.3 % (36-48); HEMOGLOBIN 8.8 g/dL (12.0-16.0); LYMPHOCYTES # (AUTO) 2.4 K/uL (1.0-5.5); MEAN CORPUSCULAR HEMOGLOBIN 28 pg (27-31); MEAN CORPUSCULAR HGB CONC 33 % (32-36); MEAN CORPUSCULAR VOLUME 83 fL (79.0-98.0); MONOCYTES # (AUTO) 0.5 K/uL (0.0-1.0); MONOCYTES % (AUTO) 6.8 % (1.7-9.3); NEUTROPHILS # (AUTO) 3.9 K/uL (1.8-7.7); NEUTROPHILS % (AUTO) 54.3 % (40.0-70.0); PLATELET COUNT (AUTO) 166 K/uL (130-430); RED BLOOD CELL COUNT(AUTO) 3.16 MIL/uL (4.2-6.2); RED CELL DISTRIBUTION WIDTH 16.5 % (9.0-15.0); WHITE BLOOD COUNT (AUTO) 7.2 K/uL (4.8-10.8)
[2021-08-11] MEDS: DIPHENHYDRAMINE HCL 25 MG CAPSULE PO SCH ×2 (09:38→21:54)
[2021-08-11] MEDS: NIFEdipine 30 MG TAB.ER.24 PO SCH (09:39)
[2021-08-11] MEDS: HEPARIN SODIUM,PORCINE 5,000 UNITS/ML VIAL SUBCUT SCH ×2 (09:40→22:00)
[2021-08-11] MEDS: SEVELAMER CARBONATE 800 MG TABLET PO SCH ×3 (09:43→18:51)
[2021-08-11 09:46] LABS: CALCIUM 8.8 mg/dL (8.4-11.0); POTASSIUM 5.6 mmol/L (3.5-5.1)
[2021-08-11 10:02] LABS: CREATININE 8.8 mg/dL (0.55-1.30)
--- NOTE | 2021-08-11 10:02 | NUR ---
NOTES: lab called for Creat 8.8, nurse Carmelina ortiz.
--- NOTE | 2021-08-11 10:21 | NUR ---
DR JADA GARCIA FOR LABORATORY RESULTS BUN 48, CREATININE 8.80 AND POTASSIUM 5.6.
--- NOTE | 2021-08-11 11:00 | NUR ---
CALLED BACK AND ORDERED TO HAVE KAXEYELATE 15 GM X 1.
[2021-08-11] MEDS ORDERED: SODIUM POLYSTYRENE SULFONATE 15 GM/60 ML UDBTL PO ONE (12:00)
--- NOTE | 2021-08-11 12:45 | NUR ---
HIGH SCHOOL FOREIGN LANGUAGE TUTOR JEFFREY Lewis provided patient information to Margarita from "[facility]" to assist with locating appropriate placement for patient. PATIENT SERVICE REPRESENTATIVE will continue to be available as needed Addendum: 08/12/21 at 1557 by Debbie Stafford MSW PATIENT SERVICE REPRESENTATIVE received a call from Margarita sharing she is working with Annette from [facility] and they may have placement available for patient. She shared Annette would be contacting this PATIENT SERVICE REPRESENTATIVE and patient's daughter to obtain additional information.
[2021-08-11 13:17] VITALS: BP_SYST 137
--- NOTE | 2021-08-11 13:45 | NUR ---
Nutrition F/U Admitting Diagnosis Renal failure Reviewed Pertinent Medical/Surgical Hx Medical Record Patient Medical History Comment: PMH: HD (2 years), non-compliance/missing HD, legally blind, toe amputations, ESRD, HTN, and DM per physician notes Pt also found w/ moderate malnutrition and metabolic encephalopathy per physician notes SARS-CoV-2 Ag (Rapid) Negative 08/05 Subjective Information: RD rounded to pt's bedside. Pt reported that she didn't care for breakfast or lunch today, so she didn't eat. RD inquired about pt's food preferences, however, pt kept stating that "[we] can't give her what [she] wants." RD offered fresh turkey sandwiches -- pt was agreeable. RD notified FNS to prepare. Per EMR review, average PO intake of 84% x11 meals; active bowel sounds; LBM x1 08/10; Aguilar scale: 16, no PIs noted. Pt appears to be meeting optimal nutritional needs based on past PO intake records. Adhere to pt's food preferences to continue to meet nutritional needs. Per LOS meeting, pt continues on HD and pending placement for possible SNF. Current Diet Order/Nutrition Support[facility] Patient/Significant Other Able To Verbalize Education Provided Not Indicated Pertinent Medications: SSI, heparin, renvela Pertinent Labs: BG 114 H, BUN 48 H, CRE 8.8 H, K 5.6 H, POC BG 102 H Height (Feet) 5 feet Height (Inches) 4.00 inches Weight (Pounds) 240 pounds Weight (Calculated Kilograms) 108.487361 kilograms Patient Weight 108.862 kg Body Mass Index 41.19 kg/m2 %IBW 200 [place]/Adjusted Body Weight 120#/54.5 kg Recent Weight Change Unable to verify Weight Status Morbidly Obese Food Allergies No Usual Diet At Home Renal per shipping and receiving specialist Skin Integrity Comment: No skin issues noted per EMR review Current % PO Good (75-100%) Estimated Energy Expenditure (kcals/day) 6017-0648 (30-35 kcal/kg Adj IBW d/t morbid obesity, ESRD/HD) Estimated Protein Required (g/day) 82-102 (132-1.5 gm/kg Adj IBW d/t morbid obesity, ESRD/HD) Estimated Fluid Required (l/day) Per physician d/t ESRD Problem/Etiology/Signs/Symptoms Malnutrition R/T morbid obesity AEB BMI: 41.4 kg/m2 and 200% of IBW. *Ongoing Increased nutritional needs R/T metabolic demands AEB estimated nutritional requirements for chronic ESRD/HD. *Ongoing Expected Outcomes/Goals - Monitor appetite and PO intakes w/ goal of pt meeting >80% of estimated nutritional needs, labs trending WNL, normal GI function, and skin integrity/wt maintenance Dietitian Recommendations * Continue CCHO diet * Adhere to food preferences Follow Up Low Risk: F/U in 7 days
--- NOTE | 2021-08-11 14:00 | NUR ---
HAD SOFT BOWEL MOVEMENT X 1 BROWN STOOL.
[2021-08-11 16:29] VITALS: BP_SYST 115
--- NOTE | 2021-08-11 17:20 | NUR ---
PHYSICAL THERAPY CO-SIGN The Physical Therapy Progress Notes documented by Certified Physical Therapist Assistant have been reviewed. Reviewed/Co-Signed by: Salma Edwards PT Documentation Done by:FAIZAN LYON RETENTION REPRESENTATIVE Addendum: 08/11/21 at 1720 by Salma Edwards PT Amended: Links added.
--- NOTE | 2021-08-11 18:00 | NUR ---
REFUSED TO HAVE BLOOD SUGAR CHECKED.
--- NOTE | 2021-08-11 18:54 | NUR ---
HAD DIARRHEA X 2. CALLED [address] HOLMAN REFUSED TO HAVE MEDICATION FOR THAT MATTER.
--- NOTE | 2021-08-11 19:28 | NUR ---
Patient refuses assistance after calling consumer loan underwriter. Says she wants someone else to assist her to bedside commode. Education to patient and shipping/receiving clerk consumer loan underwriter is available to assist when needed. Mj Weems RN
[2021-08-11 19:38] VITALS: BP_SYST 137
--- NOTE | 2021-08-11 19:43 | NUR ---
Patient request for life underwriter assist to bedside commode. Assistance given. Mj Weems RN
--- NOTE | 2021-08-11 20:02 | NUR ---
Patient had small bm soft brown. Perineal care. Patient request for diet lemon rosebud soda given. Mj Weems RN
[2021-08-11] MEDS: ATENOLOL 50 MG TABLET (TENORMIN) PO SCH (21:54)
[2021-08-11] MEDS: LORazepam 1 MG TABLET PO PRN (22:09)
[2021-08-11] MEDS: INSULIN LISPRO SLIDING SCALE 100 UNITS/ML VIAL (humaLOG) SUBCUT PRN (22:20)
[2021-08-11] MEDS: traZODone HCL 50 MG TABLET (DESYREL) PO SCH (22:22)
[2021-08-12 01:02] VITALS: BP_SYST 135
--- NOTE | 2021-08-12 08:00 | NUR ---
NOTES PATIENT AAOX 2. VITALS SIGNS STABLE. AFEBRILE. NO IV ACCESS NOTED. HAS AV SHUNT RIGHT ARM. PALPABLE THRILL AND BRUIT. CALL LIGHTS WITHIN REACH. WILL CONTINUE
[2021-08-12] MEDS: SEVELAMER CARBONATE 800 MG TABLET PO SCH ×3 (09:16→16:47)
[2021-08-12] MEDS: NIFEdipine 30 MG TAB.ER.24 PO SCH (09:17)
[2021-08-12] MEDS: DIPHENHYDRAMINE HCL 25 MG CAPSULE PO SCH ×3 (09:17→20:48)
[2021-08-12] MEDS: HEPARIN SODIUM,PORCINE 5,000 UNITS/ML VIAL SUBCUT SCH ×3 (09:18→20:49)
--- NOTE | 2021-08-12 10:00 | NUR ---
DUE MEDS GIVEN. MADE COMFORTABLE.
[2021-08-12 10:06] VITALS: BP_SYST 136
--- NOTE | 2021-08-12 12:28 | NUR ---
Dietitian Recommendations * Continue [facility] diet * Adhere to food preferences LP, RD Please refer to Nutrition F/U for details.
--- NOTE | 2021-08-12 12:34 | NUR ---
HR OPERATIONS ADVISOR ESTATE MANAGER Debbie contacted Department of Mental Health FSP Worker Joanna to inquire into status of referral for patient. According to Joanna, she was not able to locate referral in computer but shared there is a waiting list of atleast a month and sometimes that can impact if they are able to view the referral. As suggested by Joanna, ESTATE MANAGER will complete another referral for patient
[2021-08-12] MEDS: INSULIN LISPRO SLIDING SCALE 100 UNITS/ML VIAL (humaLOG) SUBCUT PRN (12:44)
--- NOTE | 2021-08-12 14:00 | NUR ---
LESA JARRETT CAME TO INFORMED PATIENT REGARDING FOODS TO EAT.
[2021-08-12 16:15] VITALS: BP_SYST 132
--- NOTE | 2021-08-12 16:16 | NUR ---
RESTING AND SLEEPING REFUSED TO BE DISTURBED.
--- NOTE | 2021-08-12 16:17 | NUR ---
[facility] NURSE WILL COME TO DO DIALYSIS TODAY.
--- NOTE | 2021-08-12 16:21 | NUR ---
[facility] DIALYSIS NURSE CAME AND REFUSED TIMES TWO. PER AWILDA RN SAID. WILL INFORMED DR ELIAS [facility]
[2021-08-12] MEDS ORDERED: SODIUM ZIRCONIUM CYCLOSILICATE 10 GM POWD.PACK PO ONE (17:30)
--- NOTE | 2021-08-12 18:49 | NUR ---
TELE MEDICINE FOR PSYCHIATRY DONE AT THIS TIME. AWAITING FOR THE PSYCHIATRY TO ANSWER
--- NOTE | 2021-08-12 18:52 | NUR ---
PATIENT AGREED TO HAVE DIALYSIS TOMORROW, DR ELIAS IS AWARE.
[2021-08-12 20:00] VITALS: BP_SYST 154
[2021-08-12] MEDS: ATENOLOL 50 MG TABLET (TENORMIN) PO SCH ×2 (20:44→20:49)
[2021-08-12] MEDS: traZODone HCL 50 MG TABLET (DESYREL) PO SCH ×2 (20:44→20:48)
--- NOTE | 2021-08-12 20:51 | NUR ---
PATIENT REFUSES ALL MEDICATION . SAYS SHE ONLY WANTS SEROQUEL AND LOPERAMIDE. WILL ENDORSE. DAVE PARKER RN
--- NOTE | 2021-08-12 21:31 | NUR ---
[facility] Call to provider who says sertraline ok if patient can give us dose she is taking at home, no loperimide for this time. Mj Weems RN
--- NOTE | 2021-08-12 21:33 | NUR ---
Patient call to home contact who does not have the dose of sertraline at this time. Mj Weems RN
[2021-08-12] MEDS: traMADol HCL HCL 50 MG TABLET (ULTRAM) PO PRN (22:41)
--- NOTE | 2021-08-12 22:44 | NUR ---
PATIENT SAYS HER DAUGHTER SAYS SHE TAKES 25 MG FOR YEARS AND OYSTER WORKER SHOULD HAVE THE DOSE WHEN ASKED FOR THE PRESCRIPTION BOTTLE FROM HOME. WILL REVIEW PREVIOUS ADMISSION PAPERWORK. PATIENT MENTIONS SHE IS SUICIDAL. DOES NOT HAVE A PLAN TO HARM HERSELF AT THIS TIME. DAVE PARKER RN
--- NOTE | 2021-08-12 22:46 | NUR ---
REVIEW OF PREVIOUS ADMISSION MEDICATION DOES NOT YIELD RESULTS OF SERTRALINE MEDICATION PRESCRIPTION DOSE. DAVE PARKER RN
--- NOTE | 2021-08-12 23:06 | NUR ---
PATIENT EDUCATION INSTRUCTION TO BRING SERTRALINE BOTTLE FROM HOME. PATIENT SAYS HER DAUGHTER IS TO YOUNG TO DRIVE. ASKED ABOUT A FRIEND TO BRING THE PRESCRIPTION OR OTHER FAMILY, PATIENT SAYS SHE CAN'T BECAUSE SHE IS HOMELESS. DAVE PARKER RN
--- NOTE | 2021-08-13 00:01 | NUR ---
PATIENT SAYS SHE TOLD ACCOUNTANT TO PULL ALL 9PM MEDICATION AND SHE WOULD TAKE IT. DAVE PARKER RN
[2021-08-13] MEDS: DIPHENHYDRAMINE HCL 25 MG CAPSULE PO SCH ×3 (00:05→21:00)
[2021-08-13] MEDS: traZODone HCL 50 MG TABLET (DESYREL) PO SCH ×2 (00:06→22:55)
[2021-08-13] MEDS: ATENOLOL 50 MG TABLET (TENORMIN) PO SCH ×2 (00:07→21:12)
[2021-08-13] MEDS: HEPARIN SODIUM,PORCINE 5,000 UNITS/ML VIAL SUBCUT SCH ×3 (00:14→21:19)
[2021-08-13] MEDS: INSULIN LISPRO SLIDING SCALE 100 UNITS/ML VIAL (humaLOG) SUBCUT PRN ×2 (00:17→12:33)
--- NOTE | 2021-08-13 00:28 | NUR ---
PATIENT TOLERATED MEDICATION WELL ASSIST TO ARRANGE ITEMS WITHIN REACH OF PATIENT. DAVE PARKER RN
[2021-08-13 01:03] VITALS: BP_SYST 165
--- NOTE | 2021-08-13 07:20 | NUR ---
rn opening note report was endorsed by night nurse. patient is awake and sitting up in bed. no needs at this time. call light is with her educated to use for assistance. close to nurses station.
--- NOTE | 2021-08-13 07:32 | NUR ---
PHYSICAL THERAPY CO-SIGN The Physical Therapy Progress Notes documented by Erp Engineer have been reviewed. Reviewed/Co-Signed by: David Beach Documentation Done by: BRETT LYON PTA Addendum: 08/13/21 at 0733 by David Beach PT Amended: Links added.
[2021-08-13 08:00] VITALS: BP_SYST 156
[2021-08-13] MEDS: traMADol HCL HCL 50 MG TABLET (ULTRAM) PO PRN (08:18)
[2021-08-13] MEDS: SEVELAMER CARBONATE 800 MG TABLET PO SCH ×3 (08:20→18:27)
--- NOTE | 2021-08-13 08:22 | NUR ---
medication patients complains of pain medicated per order. patient is scheduled to have hemodialysis done today, held bp medication and heparin. patient refused blood work to be drawn. patient educated director hr communications light for assistance. no other needs at this time. patient is close to nurses station.
[2021-08-13] MEDS: NIFEdipine 30 MG TAB.ER.24 PO SCH (09:00)
[2021-08-13 12:00] VITALS: BP_SYST 157
--- NOTE | 2021-08-13 12:00 | NUR ---
CLAIM REPRESENTATIVE SUSTAINABILITY SPECIALIST Debbie met with patient at bedside to discuss plan to discharge to [facility]. Patient stated "nope I'm not going there, I'll go to the streets". SUSTAINABILITY SPECIALIST made several efforts to identify the benefits of board and care vs motel and explained the facility amenities. SUSTAINABILITY SPECIALIST also informed patient her daughter had spoken to the theatrical variety agent of the facility and would be covering the extra cost. Patient again expressed her refusal. SUSTAINABILITY SPECIALIST consulted with Director of Case Management Sharmaine and Dr. Vasquez, and collaborated on meeting with patient to discuss the safe discharge. Patient again refused and contacted her mother during contact. According to patient, her mother has told her not to discharge to [facility]. Patient's RN Shirley and SUSTAINABILITY SPECIALIST spoke to patient's sister Beata Chakraborty who expressed wanting to the patient to discharge to SNF. SUSTAINABILITY SPECIALIST attempted to explain patient did not meet requirements for SNF. She also shared they participated in a "family meeting last week with [facility] and some other case mgr named Moon", and according to her they determined patient required SNF. Due to family expressing concern with patient's care, SUSTAINABILITY SPECIALIST informed her family is able to provide care as well upon discharge if they chose to. SUSTAINABILITY SPECIALIST contacted [facility] to obtain information related to potential discharge plan. According to Director of Case Management Elisa, they have not met with patient since 06/11/2021. SUSTAINABILITY SPECIALIST spoke to Moon [facility] for [facility]. SUSTAINABILITY SPECIALIST and Director of Case Management Sharmaine made efforts to provide an explanation of "skilled need". [facility] promotion officerSugar Mill Worker Dolores contacted this SUSTAINABILITY SPECIALIST requesting patient to be discharged to SNF. SUSTAINABILITY SPECIALIST made attempts to explain the patient does not have a skilled need and previous efforts to obtain SNF placement have been unsuccessful. She stated she would be contacting additional persons with [facility] to discuss authorization for SNF. SUSTAINABILITY SPECIALIST explained the patient's is ready for discharge at this time. SUSTAINABILITY SPECIALIST and Director of Case Management Sharmaine collaborated on speaking with patient's daughter Malcom who agreed to placement in [facility] and would speak to the family. Patient's mother informed case management and social worker psychiatric they would be filing an appeal on the discharge at this time. SUSTAINABILITY SPECIALIST provided patient's RN Shirley update on discharge.
--- NOTE | 2021-08-13 12:33 | NUR ---
accu check patients accu check done, coverage given per order. patient seen via telehealth psych at bed side. patient educated magnetic resonance technologist light for assistance. call light is with her. lunch is with her. educated on lunch tray and placed in front of her. patient has no other needs or complaints at this time. close to nurses station
[2021-08-13] MEDS ORDERED: SERTRALINE HCL 50 MG TABLET PO ONE (13:30)
--- NOTE | 2021-08-13 13:45 | NUR ---
DIGITAL MEDIA ASSOCIATE CANDY MAKER HELPER Debbie contacted Annette with [facility] to inform her the patient would not be discharging to her facility due to patient refusal and family stating they will be appealing discharge at this time. Annette expressed her understanding and shared she could not save a bed and is concerned about accepting patient at a later time due to difficulties with patient and family.
[2021-08-13 16:11] VITALS: BP_SYST 155
[2021-08-13] MEDS: EPOETIN ALFA-EPBX 4,000 UNITS/ML VIAL SUBCUT SCH (16:38)
--- NOTE | 2021-08-13 16:39 | NUR ---
accu check patients accu check done, no coverage needed. patient is refusing medication states she does not want to be poked. patient educated cell operation supervisor light for assistance. call light is with her. no other needs at this time. patient is close to nurses station.
--- NOTE | 2021-08-13 16:47 | NUR ---
Received appeal from [facility] #[id number] records requested sent by Medical records on 08/13/21 at 4:30 PM
[2021-08-13] MEDS ORDERED: DIPHENHYDRAMINE INJ 50 MG/ML VIAL IVP ONE (18:15)
[2021-08-13] MEDS ORDERED: DIPHENHYDRAMINE INJ 50 MG/ML VIAL ONE (18:29)
--- NOTE | 2021-08-13 18:31 | NUR ---
RN CLOSING NOTE SPOKE WITH DR. ELIAS RECEIVED ORDERS FOR BENADRYL FOR ITCHING WITH HEMODIALYSIS OK TO GIVE ONE TIME WITH HEMODIALYSIS BY HEMODIALYSIS NURSE.HEMODIALYSIS STARTED, BENADRYL ORDERED WAS VERIFIED BY OUTSIDE PHARMACY, GIVEN TO HEMODIALYSIS NURSE TO GIVE THROUGH HER HEMODIALYSIS. PATIENT IS REFUSING HER PO MEDICATION AT THIS TIME. PATIENT EDUCATED EGG BREAKING MACHINE OPERATOR LIGHT FOR ASSISTANCE. CALL LIGHT IS WITH HER, HEMODIALYSIS NURSE AT BEDSIDE. NO OTHER NEEDS AT THIS TIME.
[2021-08-13 20:11] VITALS: BP_SYST 128
--- NOTE | 2021-08-13 21:29 | NUR ---
PATIENT WANTS TO DISCUSS OTHER TREATMENT FOR ITCHING. PATIENT SAYS PUT DOWN I DID NOT REFUSE BENADRYL PUT DOWN THE "DUMB ASS DOES NOT KNOW THE MAX DOSE OF BENADRYL I CAN TAKE IN 24 HOURS." DAVE PARKER RN
--- NOTE | 2021-08-13 22:30 | NUR ---
Continuation of care Assumed care from Reg nurse Mj at 2130. Pt yelling for assistance to bathroom. Resource nurse assisted pt to BSC as this nurse just came out of Covid room. Pt had a BM. Assisted back in bed. R. forearm AV shunt dressing C/D/I, good thrill and bruit. Per nurse report, HD output 2.6L. Call light within reach. To monitor.
[2021-08-14 00:50] VITALS: BP_SYST 102
--- NOTE | 2021-08-14 07:02 | NUR ---
Closing notes Pt awake, no s/s distress noted. Assisted to BSC and back to bed. Call light within reach. Bed low, locked, alarm on. Endorsed to AM nurse.
[2021-08-14 08:00] VITALS: BP_SYST 153
[2021-08-14] MEDS: NIFEdipine 30 MG TAB.ER.24 PO SCH (11:25)
[2021-08-14] MEDS: SEVELAMER CARBONATE 800 MG TABLET PO SCH ×3 (11:25→18:52)
[2021-08-14] MEDS: SERTRALINE HCL 50 MG TABLET PO SCH (11:26)
[2021-08-14] MEDS: DIPHENHYDRAMINE HCL 25 MG CAPSULE PO SCH ×2 (11:26→21:00)
[2021-08-14] MEDS: HEPARIN SODIUM,PORCINE 5,000 UNITS/ML VIAL SUBCUT SCH ×2 (11:28→21:00)
[2021-08-14 12:00] VITALS: BP_SYST 118
[2021-08-14] MEDS: traMADol HCL HCL 50 MG TABLET (ULTRAM) PO PRN ×2 (14:27→21:46)
[2021-08-14 16:00] VITALS: BP_SYST 135
[2021-08-14] MEDS ORDERED: ZOLPIDEM TARTRATE 5 MG TABLET PO PRN (17:15)
--- NOTE | 2021-08-14 18:45 | NUR ---
Patient has had an uneventful shift. No s/s acute distress noted. Hemodialysis nurse at bedside to perform hemodialysis at this time.
[2021-08-14 20:00] VITALS: BP_SYST 127
--- NOTE | 2021-08-14 20:00 | NUR ---
Pt having HD at this time.
[2021-08-14] MEDS: ATENOLOL 50 MG TABLET (TENORMIN) PO SCH (21:00)
[2021-08-14] MEDS: traZODone HCL 50 MG TABLET (DESYREL) PO SCH (21:52)
[2021-08-15 00:51] VITALS: BP_SYST 120
--- NOTE | 2021-08-15 06:53 | NUR ---
Closing notes Pt asleep, easily awakens no signs of distress noted. BS checked 94. Call light within reach. Bed low, locked, siderails up x3, alarm on. To endorse to AM nurse.
[2021-08-15] MEDS: SEVELAMER CARBONATE 800 MG TABLET PO SCH ×3 (08:00→18:18)
[2021-08-15] MEDS: DIPHENHYDRAMINE HCL 25 MG CAPSULE PO SCH ×2 (10:54→20:37)
[2021-08-15] MEDS: NIFEdipine 30 MG TAB.ER.24 PO SCH (10:55)
[2021-08-15] MEDS: SERTRALINE HCL 50 MG TABLET PO SCH (10:55)
[2021-08-15] MEDS: HEPARIN SODIUM,PORCINE 5,000 UNITS/ML VIAL SUBCUT SCH ×2 (10:56→20:42)
[2021-08-15 12:00] VITALS: BP_SYST 115
[2021-08-15] MEDS: LORazepam 1 MG TABLET PO PRN (14:02)
--- NOTE | 2021-08-15 14:45 | NUR ---
Patient is resting quietly. She has been cooperative and calm throughout the day. Respirations even et unlabored. No s/s acute distress noted. Pt encouraged to use call light as needed to summon ass't. She verbalized understanding. Will continue to monitor.
[2021-08-15 16:00] VITALS: BP_SYST 149
[2021-08-15] MEDS: traMADol HCL HCL 50 MG TABLET (ULTRAM) PO PRN (18:18)
[2021-08-15 20:00] VITALS: BP_SYST 123
[2021-08-15] MEDS: traZODone HCL 50 MG TABLET (DESYREL) PO SCH (20:37)
[2021-08-15] MEDS: ATENOLOL 50 MG TABLET (TENORMIN) PO SCH (20:38)
[2021-08-16 00:39] VITALS: BP_SYST 118
[2021-08-16 07:30] VITALS: BP_SYST 148
[2021-08-16] MEDS: SERTRALINE HCL 50 MG TABLET PO SCH (08:10)
[2021-08-16] MEDS: SEVELAMER CARBONATE 800 MG TABLET PO SCH ×3 (08:10→17:26)
[2021-08-16] MEDS: NIFEdipine 30 MG TAB.ER.24 PO SCH (08:11)
[2021-08-16] MEDS: DIPHENHYDRAMINE HCL 25 MG CAPSULE PO SCH ×2 (08:11→21:17)
[2021-08-16] MEDS: traMADol HCL HCL 50 MG TABLET (ULTRAM) PO PRN (08:11)
[2021-08-16] MEDS: HEPARIN SODIUM,PORCINE 5,000 UNITS/ML VIAL SUBCUT SCH ×3 (09:38→21:18)
[2021-08-16 12:00] VITALS: BP_SYST 97
[2021-08-16 16:00] VITALS: BP_SYST 149
[2021-08-16] MEDS: EPOETIN ALFA-EPBX 4,000 UNITS/ML VIAL SUBCUT SCH (17:27)
[2021-08-16 20:24] VITALS: BP_SYST 138
[2021-08-16] MEDS: ATENOLOL 50 MG TABLET (TENORMIN) PO SCH (21:17)
[2021-08-16] MEDS: traZODone HCL 50 MG TABLET (DESYREL) PO SCH (21:39)
[2021-08-17 00:08] VITALS: BP_SYST 130
[2021-08-17] MEDS: DIPHENHYDRAMINE HCL 25 MG CAPSULE PO SCH ×2 (09:00→22:20)
--- NOTE | 2021-08-17 11:52 | NUR ---
DISCHARGE PLANNING Received call from Dolores de los santos at [facility] [phone], states to send H&P, PT eval, & snf order to [facility] fax [phone]. She is working on trying to get SNF authorized & needs information faxed. May take 24hrs to get SNF authorized, she will try to expedite it. Will fax a list of contracted snf's. Bita fitzgerald landscape architect and planner.
[2021-08-17] MEDS: NIFEdipine 30 MG TAB.ER.24 PO SCH (12:03)
[2021-08-17] MEDS: SERTRALINE HCL 50 MG TABLET PO SCH (12:04)
[2021-08-17] MEDS: LORazepam 1 MG TABLET PO PRN (12:04)
[2021-08-17] MEDS: HEPARIN SODIUM,PORCINE 5,000 UNITS/ML VIAL SUBCUT SCH ×2 (12:05→21:00)
[2021-08-17] MEDS: SEVELAMER CARBONATE 800 MG TABLET PO SCH ×2 (12:07→17:50)
[2021-08-17 12:09] VITALS: BP_SYST 157
--- NOTE | 2021-08-17 12:26 | NUR ---
Discharge Planning: DCP faxed pt referral to Dolores merino [facility] F#[phone] P#[phone]. DCP to follow up.
[2021-08-17] MEDS: traMADol HCL HCL 50 MG TABLET (ULTRAM) PO PRN (17:51)
[2021-08-17 20:45] VITALS: BP_SYST 143
[2021-08-17] MEDS ORDERED: ACETAMINOPHEN 325 MG TABLET PO ONE (21:45)
[2021-08-17] MEDS: ATENOLOL 50 MG TABLET (TENORMIN) PO SCH (22:20)
[2021-08-17] MEDS: traZODone HCL 50 MG TABLET (DESYREL) PO SCH (22:40)
[2021-08-17] MEDS: NAPROXEN 250 MG TABLET PO PRN (22:43)
[2021-08-18 00:30] VITALS: BP_SYST 139
[2021-08-18] MEDS: DIPHENHYDRAMINE HCL 25 MG CAPSULE PO SCH ×2 (08:36→23:00)
[2021-08-18] MEDS: SERTRALINE HCL 50 MG TABLET PO SCH (08:36)
[2021-08-18] MEDS: SEVELAMER CARBONATE 800 MG TABLET PO SCH ×3 (08:36→17:36)
[2021-08-18] MEDS: HEPARIN SODIUM,PORCINE 5,000 UNITS/ML VIAL SUBCUT SCH ×2 (08:38→21:00)
[2021-08-18] MEDS: NIFEdipine 30 MG TAB.ER.24 PO SCH (08:39)
--- NOTE | 2021-08-18 08:40 | NUR ---
PT REFUSED TO HAVE VITAL SIGNS CHECKED. PT STATED "NO YOU DON'T" PT WENT BACK TO SLEEP. WILL ATTEMPT AGAIN AT A LATER TIME. NO DISTRESS NOTED.
--- NOTE | 2021-08-18 09:48 | NUR ---
LATE ENTRY: Discharge Planning: DCP faxed pt referral to: [facility] [phone] [facility] [phone] [facility] [phone] [facility] [phone] Saul Sweeney [phone] [facility] [phone] [facility] [phone] facilities form contracted list provided by Dolores at [facility] F#[phone] P#[phone] Addendum: 08/18/21 at 1246 by Nya Espino DP [facility] [phone] [facility] [phone]- Declined pt has to be fully vaccinated with one booster, no firm DC plan [facility] [phone]-No female beds [facility] [phone]-facility on lock down due to Covid Saul Zahra [phone]-Declined pt appears homeless no DC plan [facility] [phone]-Declined pt past 5150, no firm DC plan, pt unable to take care of self, no alf [facility] [phone]-[phone] for Evelina
--- NOTE | 2021-08-18 11:51 | NUR ---
AERIAL CROP DUSTER MIRROR MACHINE FEEDER Debbie spoke with Liliam with [facility] to obtain an update on family's agreement with placement. She shared the family will be moving forward and expressed concern with obtaining transportation from this facility to [facility] [place] at [address] [place] [address]. MIRROR MACHINE FEEDER and Director of Case Management attempted contact with family and [facility] to obtain information about transportation options. Voicemails requesting call back were left
--- NOTE | 2021-08-18 12:24 | NUR ---
PT STILL REFUSED TO EAT LUNCH AND HAVE BS CHECKED. SHE STATED "I'LL WAIT" AND PT WENT BACK TO SLEEP. NO DISTRESS NOTED. WILL MONITOR PT CLOSELY.
--- NOTE | 2021-08-18 13:38 | NUR ---
DC PLANNING Earlier today received call from Dolores at [facility] & updated no accepting SNF's, that per Educational Administration Teacher [facility] accepted pt MondayAugust 13, that was going to f/u if still able to accept pt today. 1235: Received call from Dolores at [facility], [facility] [phone], that spoke with Annette with [facility] care & board & that will not be able to take pt. States that was informed by Annette that their [place] Location may be able to take pt & pt would be able to cont at same Dialysis Center & get transportation thru [facility]. Informed Educational Administration Teacher.
[2021-08-18] MEDS: LORazepam 1 MG TABLET PO PRN (14:47)
--- NOTE | 2021-08-18 14:55 | NUR ---
EDI CONSULTANT ESCALATOR CONSTRUCTOR Debbie met with patient at bedside. Patient was awake and open to contact. Current issue- ESCALATOR CONSTRUCTOR informed patient of denial of appeal and need for discharge plan. ESCALATOR CONSTRUCTOR informed patient of denial and explored patient's desire for placement as she is ready for discharge. ESCALATOR CONSTRUCTOR also informed her of previous [facility] sharing with [facility] (see Case Management notes) that a bed may be available in [place]. Patient stated she'd like to move forward with transferring to [facility] but wanted to discuss further with her mother Roslyn Porras and requested for this ESCALATOR CONSTRUCTOR to contact her mother as well. ESCALATOR CONSTRUCTOR contacted Annette with [facility] to confirm bed availability in [place] location. According to Annette, there is placement available but she was concerned about dialysis transportation. She also shared she would need to discuss financials and consents with family and patient.
--- NOTE | 2021-08-18 15:14 | NUR ---
BLEACH LIQUOR MAKER JEFFREY Lewis contacted patient's mother Roslyn Porras to inquire into their ability to support patient with discharge. Patient's mother stated she was not "dealing with that you have to call her daughter Malcom". JEFFREY Lewis contacted patient's daughter Malcom to discuss discharge plan. WATCH ASSEMBLY INSTRUCTOR provided daughter with contact information for Annette at [facility] to address any questions/concerns she had regarding placement and to discuss financial obligations and process.
--- NOTE | 2021-08-18 15:19 | NUR ---
PROTECTION OFFICER JEFFREY Lewis contacted [facility] [place] to inquire into transfer of location for dialysis and transportation once patient is transferred to [facility]. Message was left requesting call back Addendum: 08/19/21 at 1000 by Debbie MURPHY LATE ENTRY Service occurred 08/18/2021 JEFFREY contacted [facility] [employer] . Was directed to fax updated clinicals to to request change in facility. Addendum: 08/19/21 at 1002 by Debbie MURPHY JEFFREY Lewis faxed packet to request facility change to be closer to [facility]. JEFFREY also contacted [employer] to which customer service stated [facility] Staff will support patient with obtaining transportation to and from facility.
[2021-08-18 15:34] VITALS: BP_SYST 130
[2021-08-18] MEDS: EPOETIN ALFA-EPBX 4,000 UNITS/ML VIAL SUBCUT SCH (17:00)
[2021-08-18] MEDS: NAPROXEN 250 MG TABLET PO PRN (18:37)
[2021-08-18 20:15] VITALS: BP_SYST 123
[2021-08-18] MEDS: ATENOLOL 50 MG TABLET (TENORMIN) PO SCH (23:01)
[2021-08-18] MEDS: traZODone HCL 50 MG TABLET (DESYREL) PO SCH (23:53)
[2021-08-19 00:31] VITALS: BP_SYST 126
[2021-08-19] MEDS: NAPROXEN 250 MG TABLET PO PRN (07:11)
[2021-08-19] MEDS: SEVELAMER CARBONATE 800 MG TABLET PO SCH ×3 (07:33→18:00)
[2021-08-19 07:39] LABS: CALCIUM 9.9 mg/dL (8.4-11.0); POTASSIUM 5.3 mmol/L (3.5-5.1)
[2021-08-19 07:48] LABS: CREATININE 10.55 mg/dL (0.55-1.30)
[2021-08-19 07:56] LABS: BASOPHILS # (AUTO) 0.1 K/uL (0.0-0.2); EOSINOPHILS # (AUTO) 0.3 K/uL (0.0-0.4); EOSINOPHILS % (AUTO) 4.2 % (0.0-4.0); HEMATOCRIT 29.5 % (36-48); HEMOGLOBIN 9.7 g/dL (12.0-16.0); LYMPHOCYTES # (AUTO) 2.3 K/uL (1.0-5.5); LYMPHOCYTES % (AUTO) 32.1 % (20.5-51.5); MEAN CORPUSCULAR HEMOGLOBIN 28 pg (27-31); MEAN CORPUSCULAR HGB CONC 33 % (32-36); MEAN CORPUSCULAR VOLUME 84 fL (79.0-98.0); MONOCYTES # (AUTO) 0.6 K/uL (0.0-1.0); MONOCYTES % (AUTO) 7.5 % (1.7-9.3); NEUTROPHILS % (AUTO) 55.2 % (40.0-70.0); PLATELET COUNT (AUTO) 174 K/uL (130-430); RED BLOOD CELL COUNT(AUTO) 3.51 MIL/uL (4.2-6.2); RED CELL DISTRIBUTION WIDTH 15.9 % (9.0-15.0); WHITE BLOOD COUNT (AUTO) 7.3 K/uL (4.8-10.8)
[2021-08-19 08:00] VITALS: BP_SYST 167
--- NOTE | 2021-08-19 08:00 | NUR ---
Dr Gonzalez at bedside. I updated MD about the critical creatine value of 10. Patient is scheduled for dialysis today.
--- NOTE | 2021-08-19 08:00 | NUR ---
Assessed patient at bedside. Presented stable vital signs. Complains of abdominal pain and nausea. Will update
[2021-08-19] MEDS: DIPHENHYDRAMINE HCL 25 MG CAPSULE PO SCH ×2 (09:11→20:53)
[2021-08-19] MEDS: SERTRALINE HCL 50 MG TABLET PO SCH (09:11)
[2021-08-19] MEDS: HEPARIN SODIUM,PORCINE 5,000 UNITS/ML VIAL SUBCUT SCH ×2 (09:11→20:59)
[2021-08-19] MEDS: NIFEdipine 30 MG TAB.ER.24 PO SCH (09:14)
--- NOTE | 2021-08-19 09:30 | NUR ---
DEPUTY TREASURER JEFFREY Lewis contacted Liliam at [facility] to obtain an update on family's efforts to secure and complete necessary documents for patient's placement. According to Liliam, they have been unable to make contact with patient's daughter Malcom who is "handling everything". She stated they are still awaiting deposit to secure placement. JEFFREY Lewis attempted contact with patient's daughter Malcom . A voicemail was left requesting call back Addendum: 08/19/21 at 1516 by Debbie Stafford MSW @130pm JEFFREY Lewis contacted Liliam to obtain update, and she shared she still has not been able to make contact with family. Addendum: 08/19/21 at 1523 by Debbie Stafford MANAGER MARKET DEVELOPMENT In an effort to obtain status on patient's placement, JEFFREY Lewis contacted patient's sister Jessica Chakraborty . According to Jessica, patient's daughter Malcom was handling placement. JEFFREY informed her active efforts to secure transportation, and setting up dialysis in [facility] were being done. She also requested for her mother to be contacted. JEFFREY Lewis attempted contact with mother Roslyn Porras unable to leave voicemail. Addendum: 08/19/21 at 1614 by Debbie MURPHY MANAGER MARKET DEVELOPMENT contacted [facility] to obtain an update on completion of necessary documents for placement. According to Annette, they have been unable to contact patient's family nor have they received deposit to secure placement. JEFFREY Lewis attempted contact to patient's daughter Malcom, patient's sister Jessica, and Patient's mother but were unavailable.
[2021-08-19] MEDS: ONDANSETRON HCL 4 MG/2 ML VIAL IVP PRN (09:46)
--- NOTE | 2021-08-19 09:56 | NUR ---
BRASS SORTER JEFFREY Lewis contacted [facility] BERNADINE Bernal to address authorization for transportation to [facility] and [facility]. Voicemail requesting call back was left Addendum: 08/19/21 at 1150 by Debbie MURPHY JEFFREY Lewis received voicemail from Dolores advising transportation can be covered under hospital authorization using a [facility] or [facility] provider. She advised to utilize [facility] or contact [facility] directly. Addendum: 08/19/21 at 1234 by Debbie MURPHY JEFFREY Lewis faxed transportation request to [facility] Addendum: 08/19/21 at 1511 by Debbie Stafford ANALYSIS REPORTING DEVELOPER JEFFREY Lewis contacted [facility] to ensure receipt of transportation request. According to Kimberlee, the request was under review and facility would be contacted with update Addendum: 08/19/21 at 4367 by Debbie Stafford MSW Due to placement not being secured, JEFFREY Lewis contacted [facility] transport to cancel transportation request due to family not completing necessary consents and deposit with board and care. Request was cancelled with Maame.
--- NOTE | 2021-08-19 10:32 | NUR ---
ATTENDING MD DR MOLINA WAS CALLED, RE: RELIEF FOR ABD PAIN - MORPHINE ORDER. SPOKE TO BEATA.
[2021-08-19] MEDS: LORazepam 1 MG TABLET PO PRN (10:48)
[2021-08-19] MEDS ORDERED: NALOXONE HCL 0.4 MG/ML AMP (NARCAN) IVP PRN (12:00)
[2021-08-19] MEDS ORDERED: MORPHINE 2 MG/ML INJ. SYRINGE ONE (12:02)
[2021-08-19 12:07] VITALS: BP_SYST 164
--- NOTE | 2021-08-19 12:35 | NUR ---
SHIFT ENGINEER PHYSIATRIST Debbie contacted [facility] Admission body team member De ext: [phone] to inquire into status of facility transfer. According to De the transfer has been approved and needed addtional medical documents from this facility. She requested the following; - Flowsheet or Physician Orders - Chest Xray - Hep B panel She also provided the proposed chair time of MWF 430pm-730pm Shift 4. \ PHYSIATRIST consulted with De to address time constraints of Hep B panel and it's impact on discharge. De agreed to contact patient's previous [facility] provider in [place] to explore their current medical information that may be able to satisfy requirement.
[2021-08-19] MEDS: MORPHINE 2 MG/ML INJ. SYRINGE IVP PRN ×2 (14:24→20:38)
[2021-08-19 16:10] VITALS: BP_SYST 124
[2021-08-19 20:44] VITALS: BP_SYST 129
[2021-08-19] MEDS: ATENOLOL 50 MG TABLET (TENORMIN) PO SCH (20:53)
[2021-08-19] MEDS: DOCUSATE SODIUM 100 MG CAPSULE PO PRN (20:53)
[2021-08-19] MEDS: traZODone HCL 50 MG TABLET (DESYREL) PO SCH (21:01)
[2021-08-19 23:32] VITALS: BP_SYST 90
[2021-08-20 08:00] VITALS: BP_SYST 89
--- NOTE | 2021-08-20 08:56 | NUR ---
PARTS DEPARTMENT MANAGER CHORUS DANCER Debbie met with patient at bedside. Patient was sitting at the side of her bed eating breakfast. Due to patient's visual impairments, CHORUS DANCER announced herself upon entry to room and patient was open to contact. Current concern- Patient is ready for discharge, but family is unreachable for this CHORUS DANCER and [facility] and Care to which they have not completed necessary documents and payment. CHORUS DANCER informed patient that transportation had been ordered but needed to be cancelled due to family not completing necessary documents for Board and care. CHORUS DANCER inquired into patient' contact with family, to which she shared she has not spoken to them since Monday. CHORUS DANCER also informed patient of extensive efforts to arrange transportation, transfer dialysis centers within [facility] to be closer to [facility], and efforts to contact family prior to cancelation of transport to [facility]. Patient expressed wanting to leave and began asking questions regarding board and care. CHORUS DANCER offered contact information, but patient declined and stated "I'm not good at that stuff, my mom deals with all that". CHORUS DANCER informed patient efforts will continue for discharge to [facility], but her family would be responsible to cotton picker patient today if she will not be going to [facility].
[2021-08-20] MEDS: NIFEdipine 30 MG TAB.ER.24 PO SCH (09:00)
[2021-08-20] MEDS: HEPARIN SODIUM,PORCINE 5,000 UNITS/ML VIAL SUBCUT SCH ×2 (09:41→21:00)
[2021-08-20] MEDS: DOCUSATE SODIUM 100 MG CAPSULE PO PRN (09:42)
[2021-08-20] MEDS: DIPHENHYDRAMINE HCL 25 MG CAPSULE PO SCH ×2 (09:42→21:48)
[2021-08-20] MEDS: SEVELAMER CARBONATE 800 MG TABLET PO SCH ×3 (09:42→18:00)
[2021-08-20] MEDS: SERTRALINE HCL 50 MG TABLET PO SCH (09:42)
--- NOTE | 2021-08-20 11:00 | NUR ---
NUCLEAR PHYSICS TEACHER JEFFREY Browningette received a call from Dolores COLINDRESpet stylistSales Agent Business Services from [facility] . She shared they are requesting for home health to be ordered for the following- -RN Safety Check - PT - Med Reconciliation She also shared that she had spoken to Annette from [facility] and the family had signed contract this morning but they were still awaiting payment. Case Management and Social Service departments are collaborating on efforts to address these request Addendum: 08/23/21 at 0831 by Debbie MURPHY LATE ENTRY Contact occurred 08/20/2021 Due to patient's family stating they would not be placing deposit for patient to discharge to [facility] and their expressing "Moon from [facility] told us we do not have to send her there and facility is harassing us", WOOD MACHINE CARVER attempted to contact [facility] Dolores COLINDRESpet stylistcommunications planner for support unable to leave voicemail due to being full. WOOD MACHINE CARVER consulted and sought support from Director Of Case Management Sharmaine to address concerns with impact of [facility] on patient's family's support of safe discharge plan.
--- NOTE | 2021-08-20 11:50 | NUR ---
MOLECULAR BIOLOGY PROFESSOR JEFFREY Debbie attempted contact with Annette from [facility] to confirm placement has been secured for patient. Voicemail was left requesting call back. JEFFREY Debbie attempted contact with patient's daughter Malcom and sister Jessica to confirm placement. Voicemail requesting call back was left. Addendum: 08/20/21 at 1222 by Debbie MURPHY JEFFREY Debbie received call from Annette. She confirmed patient's family had signed contract for [facility] but payment/deposit had not been made. She also shared if payment has not been received by 3p, they will lose bed Addendum: 08/23/21 at 0894 by Debbie MURPHY LATE ENTRY Contact occurred 08/21/2020 DATA SOLUTIONS ARCHITECT Contacted patient's mother Roslyn Porras who shared the family would not be placing deposit with Board and Care. DATA SOLUTIONS ARCHITECT inquired into family's plan to support patient with discharge, to which she stated they would not be picking up patient. DATA SOLUTIONS ARCHITECT attempted to explore extended family members available to support patient, to which she stated "no one can go get her, there is no where for her to go. Moon from [facility] said we don't need to continue to be contacted because she can stay there until facility locates placement". DATA SOLUTIONS ARCHITECT made several attempts to request support with discharge as the patient has been medically cleared and expressed a desire to placed in the Board and Care but patient's mother expressed not wanting patient to be placed there.
--- NOTE | 2021-08-20 12:42 | NUR ---
Discharge Planning: WVP faxed pt information xray and dialysis flow sheet to [facility] F#[phone] P#[phone], DCP faxed to [facility] P#[phone], [facility] P#[phone], [facility] P#[phone] DCP to follow up. Addendum: 08/20/21 at 1633 by Nya Espino DP [facility] P#[phone] will accept pt and will see pt in homeless long term.
[2021-08-20 15:39] VITALS: BP_SYST 117
--- NOTE | 2021-08-20 16:44 | NUR ---
[facility] accepted the patient-they will see the patient if she is discharged to a homeless residential.
[2021-08-20] MEDS: EPOETIN ALFA-EPBX 4,000 UNITS/ML VIAL SUBCUT SCH (17:00)
[2021-08-20 20:07] VITALS: BP_SYST 105
[2021-08-20] MEDS: NAPROXEN 250 MG TABLET PO PRN (21:47)
[2021-08-20] MEDS: ATENOLOL 50 MG TABLET (TENORMIN) PO SCH (21:47)
[2021-08-20] MEDS: traZODone HCL 50 MG TABLET (DESYREL) PO SCH (21:47)
[2021-08-21 00:40] VITALS: BP_SYST 138
[2021-08-21] MEDS: MORPHINE 2 MG/ML INJ. SYRINGE IVP PRN ×2 (00:45→11:52)
[2021-08-21] MEDS: ONDANSETRON HCL 4 MG/2 ML VIAL IVP PRN ×3 (02:06→18:01)
[2021-08-21] MEDS: LORazepam 1 MG TABLET PO PRN (03:56)
[2021-08-21 06:53] LABS: BASOPHILS # (AUTO) 0.1 K/uL (0.0-0.2); BASOPHILS % (AUTO) 0.9 % (0.0-2.0); EOSINOPHILS # (AUTO) 0.2 K/uL (0.0-0.4); EOSINOPHILS % (AUTO) 2.4 % (0.0-4.0); HEMATOCRIT 31.9 % (36-48); HEMOGLOBIN 10.4 g/dL (12.0-16.0); LYMPHOCYTES # (AUTO) 1.6 K/uL (1.0-5.5); LYMPHOCYTES % (AUTO) 21.3 % (20.5-51.5); MEAN CORPUSCULAR HEMOGLOBIN 28 pg (27-31); MEAN CORPUSCULAR HGB CONC 33 % (32-36); MEAN CORPUSCULAR VOLUME 84 fL (79.0-98.0); MONOCYTES # (AUTO) 0.2 K/uL (0.0-1.0); MONOCYTES % (AUTO) 3.1 % (1.7-9.3); NEUTROPHILS # (AUTO) 5.3 K/uL (1.8-7.7); NEUTROPHILS % (AUTO) 72.3 % (40.0-70.0); PLATELET COUNT (AUTO) 179 K/uL (130-430); RED BLOOD CELL COUNT(AUTO) 3.79 MIL/uL (4.2-6.2); RED CELL DISTRIBUTION WIDTH 15.9 % (9.0-15.0); WHITE BLOOD COUNT (AUTO) 7.3 K/uL (4.8-10.8)
[2021-08-21 07:00] VITALS: BP_SYST 174
[2021-08-21 08:05] LABS: CALCIUM 10.4 mg/dL (8.4-11.0); POTASSIUM 4.9 mmol/L (3.5-5.1)
--- NOTE | 2021-08-21 09:00 | NUR ---
Patient sleeping but easily arousable. C/o nausea-will check for PRN anti emetic meds. Refused to take all am Oral scheduled meds at this time due to nausea. Patient refused to eat breakfast at this time. Patient scheduled for dialysis treatment today. BP 174/78--patient denies any headache, palpitations, cp, etc. Patient in bed resting. Will cont to monitor patient
[2021-08-21 09:44] LABS: CREATININE 11.22 mg/dL (0.55-1.30)
--- NOTE | 2021-08-21 10:57 | NUR ---
Patient still refusing to take am scheduled Oral meds. Patient scheduled for dialysis today. Will cont to monitor patient.
--- NOTE | 2021-08-21 11:20 | NUR ---
Nausea/vomit--greenish color emesis about 150ml. Patient refused to eat breakfast due to nausea. Will give anti emetic PRN as ordered. Will cont to monitor patient
[2021-08-21] MEDS: HEPARIN SODIUM,PORCINE 5,000 UNITS/ML VIAL SUBCUT SCH ×2 (11:46→23:22)
[2021-08-21] MEDS: SERTRALINE HCL 50 MG TABLET PO SCH (11:47)
[2021-08-21] MEDS: SEVELAMER CARBONATE 800 MG TABLET PO SCH ×3 (11:48→17:11)
[2021-08-21] MEDS: NIFEdipine 30 MG TAB.ER.24 PO SCH (11:48)
[2021-08-21] MEDS: DIPHENHYDRAMINE HCL 25 MG CAPSULE PO SCH ×2 (11:48→23:15)
[2021-08-21 12:00] VITALS: BP_SYST 186
--- NOTE | 2021-08-21 12:30 | NUR ---
Patient BS 161--2u SSI held. Patient did not eat breakfast/lunch due to nausea. Anti emetic meds not due at this time-due at 1430pm. Patient educated about the importance of eating meals as tolerated. Per patient "has no appetite at this time." Will cont to monitor patient
[2021-08-21 16:00] VITALS: BP_SYST 155
[2021-08-21] MEDS: INSULIN LISPRO SLIDING SCALE 100 UNITS/ML VIAL (humaLOG) SUBCUT PRN (17:10)
--- NOTE | 2021-08-21 18:04 | NUR ---
Nutrition F/U Admitting Diagnosis Renal failure Reviewed Pertinent Medical/Surgical Hx Medical Record Patient Medical History Comment: PMH: HD (2 years), non-compliance/missing HD, legally blind, toe amputations, ESRD, HTN, and DM per physician notes Pt also found w/ moderate malnutrition and metabolic encephalopathy per physician notes SARS-CoV-2 Ag (Rapid) Negative 08/05 Subjective Information: RD bedside visit deferred d/t high workload. Per EMR review, pt has been refusing/eating less breakfast, however, eating better at lunch and dinner since last RD F/U 08/11; HD today; physicians noted pt is stable for transfer/D/C; on RA; LBM x2 /; Aguilar scale: 16, no PIs noted. Current diet is appropriate. Current Diet Order/Nutrition Support: CCHO x14 days Patient/Significant Other Able To Verbalize Education Provided Not Indicated Pertinent Medications: morphine, SSI, keppra, renvela, zofran, colace Pertinent Labs: BG 155 H, BUN 47 H, CRE 11.22 H, K 4.9 WNL, POC BG 175 H Height (Feet) 5 feet Height (Inches) 4.00 inches Weight (Pounds) 240 pounds -- stable since 08/06 Patient Weight 108.862 kg Body Mass Index 41.19 kg/m2 %IBW 200 [place]/Adjusted Body Weight 120#/54.5 kg Recent Weight Change Unable to verify Weight Status Morbidly Obese Food Allergies No Usual Diet At Home Renal per public relations officer Skin Integrity Comment: No skin issues noted per EMR review Current % PO Fair Estimated Energy Expenditure (kcals/day) 2305-2977 (30-35 kcal/kg Adj IBW d/t morbid obesity, ESRD/HD) Estimated Protein Required (g/day) 82-102 (132-1.5 gm/kg Adj IBW d/t morbid obesity, ESRD/HD) Estimated Fluid Required (l/day) Per physician d/t ESRD Problem/Etiology/Signs/Symptoms Malnutrition R/T morbid obesity AEB BMI: 41.4 kg/m2 and 200% of IBW. *Ongoing Increased nutritional needs R/T metabolic demands AEB estimated nutritional requirements for chronic ESRD/HD. *Ongoing Expected Outcomes/Goals - Monitor appetite and PO intakes w/ goal of pt meeting >80% of estimated nutritional needs, labs trending WNL, normal GI function, and skin integrity/wt maintenance Dietitian Recommendations * Continue [facility] diet * Adhere to food preferences Follow Up Low Risk: F/U in 7 days
--- NOTE | 2021-08-21 18:07 | NUR ---
Dietitian Recommendations * Continue [facility] diet * Adhere to food preferences LP, RD Please refer to Nutrition F/U for details.
--- NOTE | 2021-08-21 19:17 | NUR ---
END SHIFT REPORT GIVEN TO BERNADINE PARKER. HD NURSE AT BEDSIDE FOR DIALYSIS TREATMENT. PT REFUSED TO EAT DINNER. THANK YOU
[2021-08-21 19:36] VITALS: BP_SYST 156
[2021-08-21] MEDS: traZODone HCL 50 MG TABLET (DESYREL) PO SCH (21:00)
[2021-08-21 23:20] VITALS: BP_SYST 104
[2021-08-21] MEDS: ATENOLOL 50 MG TABLET (TENORMIN) PO SCH (23:21)
[2021-08-22 07:00] VITALS: BP_SYST 132
[2021-08-22 08:00] VITALS: BP_SYST 132
[2021-08-22 08:16] LABS: BASOPHILS # (AUTO) 0.1 K/uL (0.0-0.2); BASOPHILS % (AUTO) 0.6 % (0.0-2.0); EOSINOPHILS # (AUTO) 0.1 K/uL (0.0-0.4); HEMATOCRIT 28.7 % (36-48); HEMOGLOBIN 9.7 g/dL (12.0-16.0); LYMPHOCYTES # (AUTO) 2.3 K/uL (1.0-5.5); LYMPHOCYTES % (AUTO) 26.3 % (20.5-51.5); MEAN CORPUSCULAR HEMOGLOBIN 28 pg (27-31); MEAN CORPUSCULAR HGB CONC 34 % (32-36); MEAN CORPUSCULAR VOLUME 84 fL (79.0-98.0); MONOCYTES # (AUTO) 0.7 K/uL (0.0-1.0); MONOCYTES % (AUTO) 7.4 % (1.7-9.3); NEUTROPHILS # (AUTO) 5.8 K/uL (1.8-7.7); NEUTROPHILS % (AUTO) 64.7 % (40.0-70.0); PLATELET COUNT (AUTO) 180 K/uL (130-430); RED BLOOD CELL COUNT(AUTO) 3.44 MIL/uL (4.2-6.2); WHITE BLOOD COUNT (AUTO) 8.9 K/uL (4.8-10.8)
[2021-08-22 09:20] LABS: CALCIUM 10.1 mg/dL (8.4-11.0); POTASSIUM 3.8 mmol/L (3.5-5.1)
[2021-08-22] MEDS: SEVELAMER CARBONATE 800 MG TABLET PO SCH ×3 (09:31→18:32)
[2021-08-22] MEDS: NIFEdipine 30 MG TAB.ER.24 PO SCH (09:32)
[2021-08-22] MEDS: SERTRALINE HCL 50 MG TABLET PO SCH (09:32)
[2021-08-22] MEDS: DIPHENHYDRAMINE HCL 25 MG CAPSULE PO SCH ×2 (09:32→20:50)
[2021-08-22] MEDS: HEPARIN SODIUM,PORCINE 5,000 UNITS/ML VIAL SUBCUT SCH ×2 (09:39→20:51)
[2021-08-22 10:02] LABS: CREATININE 8.45 mg/dL (0.55-1.30)
[2021-08-22 12:00] VITALS: BP_SYST 159
--- NOTE | 2021-08-22 12:00 | NUR ---
Patient refused to eat breakfast and lunch. Refused Blood sugar check for noon time. Patient educated about the importance of being compliant with medical and medication treatment. Patient still refused. Will cont to monitor patient. Thank you
[2021-08-22 16:00] VITALS: BP_SYST 110
--- NOTE | 2021-08-22 19:09 | NUR ---
END SHIFT REPORT GIVEN TO BERNADINE PARKER. THANK YOU
[2021-08-22 20:13] VITALS: BP_SYST 109
[2021-08-22] MEDS: traZODone HCL 50 MG TABLET (DESYREL) PO SCH (20:50)
[2021-08-22] MEDS: ATENOLOL 50 MG TABLET (TENORMIN) PO SCH (20:50)
[2021-08-23 03:10] VITALS: BP_SYST 118
--- NOTE | 2021-08-23 07:20 | NUR ---
OPENING NOTE RECEIVED SBAR FROM NIGHT RN, PATIENT IN BED, RESPIRATIONS EVEN, NON LABORED, BED IN LOW AND LOCKED POSITION, CALL LIGHT WITHIN REACH.
--- NOTE | 2021-08-23 07:36 | NUR ---
Closing Patient resting in bed, unlabored breathing on room air. No insulin per sliding scale this morning. Call light in reach, bed low and locked.
[2021-08-23 08:00] VITALS: BP_SYST 126
[2021-08-23] MEDS: SEVELAMER CARBONATE 800 MG TABLET PO SCH ×3 (08:50→18:35)
[2021-08-23] MEDS: DIPHENHYDRAMINE HCL 25 MG CAPSULE PO SCH ×2 (08:50→21:54)
[2021-08-23] MEDS: SERTRALINE HCL 50 MG TABLET PO SCH (08:51)
[2021-08-23] MEDS: HEPARIN SODIUM,PORCINE 5,000 UNITS/ML VIAL SUBCUT SCH ×2 (08:52→22:41)
[2021-08-23] MEDS: NIFEdipine 30 MG TAB.ER.24 PO SCH (09:00)
--- NOTE | 2021-08-23 09:00 | NUR ---
HVAC JOURNEYMAN JEFFREY Lewis met with patient at bedside. Patient was awake and sitting at side of her bed. JEFFREY Lewis informed patient that Board and Care deposit was not paid by family and placement was cancelled by class 1 owner operator Annette. Patient inquired into contact with mother, and TOOLSMITH informed her family members were contacted and requested no additional contact. TOOLSMITH attempted to explore safe fci options with patient, but patient stated "Nope I am not going to a fci I'd rather be on the streets". TOOLSMITH made attempts to explore current status as unhoused and unavailability of family to support, but patient stated she no longer wanted to engage with this TOOLSMITH. TOOLSMITH made a final attempt to explore her "wish and thoughts for placement", and she again stated "I'm not going to a fci, and I'm not talking to you any more". TOOLSMITH acknowledged her request, and offered to be available at a later time as well as informed her of additional TOOLSMITH onsite this day. TOOLSMITH will continue to be available as needed
--- NOTE | 2021-08-23 11:38 | NUR ---
MARKETING AND PUBLIC RELATIONS MANAGER CONTROL EQUIPMENT ELECTRICIAN Debbie continued efforts to locate placement for patient. The following shelters/social service centers were called: - [facility] It Network Engineer [facility] , voicemail requesting call back was left - [facility] , voicemail requesting call back was left
[2021-08-23] MEDS: INSULIN LISPRO SLIDING SCALE 100 UNITS/ML VIAL (humaLOG) SUBCUT PRN ×2 (11:47→23:01)
[2021-08-23 12:00] VITALS: BP_SYST 120
--- NOTE | 2021-08-23 13:46 | NUR ---
Nutrition Intern ACQUISITIONS LOGISTICS ANALYST met with pt. at her bedside. Pt. stated her mom told her that ACQUISITIONS LOGISTICS ANALYSTLoni Lewis has not been in contact with the B/C worker, Annette. ACQUISITIONS LOGISTICS ANALYST aked pt. if she had a SSI card with a balance on it. Pt. stated she will look in her belongings. Pt. also stated her mom Ginger has another card with about $800 on it. Pt. will call her mom. ACQUISITIONS LOGISTICS ANALYST will come back ACQUISITIONS LOGISTICS ANALYST called Ginger to get her assitance. Mom Ginger was not on board stating, "What questions do you want to ask" "What do you want from me" ACQUISITIONS LOGISTICS ANALYST asked Ginger if the family can make the deposit if the B/C still has a room for Starlette. Ginger said, "Whats it to you" and "Stop harassing Starlette" ACQUISITIONS LOGISTICS ANALYST called sister Jessica Chakraborty who stated Latisha from [facility] gave her a list of agencies to call to try to get Starlette placed. Jessica said the roadblock is that the paperwork from the hospital "Is all wrong and not written right". Jessica continued, "The agencies wont take Starlette based on the paperwork". ACQUISITIONS LOGISTICS ANALYST interjected stating, "Let me see if I understand what you are saying" The agencies they are contacting will not take Starlettr based on the paperwork stating Starletts behavior". Jessica said that was correct. Dolores from [facility] gave Jessica a list of SNF's which pt. is not appropriate for. ACQUISITIONS LOGISTICS ANALYST spoke to Annette who checked and stated they do have a female bed and will give it to Sadaf as long as the family will Samm her the payement. The payment will be $500 deposit and $1200 per month. ACQUISITIONS LOGISTICS ANALYST spoke to Sadaf. Together they were able to find her SSI card. ACQUISITIONS LOGISTICS ANALYST asked if she could call to find out the balance and that could be used for the B/C balance. Sadfa said, "let me call my katarinaa". ACQUISITIONS LOGISTICS ANALYST said her mom does not want to speak to the ACQUISITIONS LOGISTICS ANALYST and that ACQUISITIONS LOGISTICS ANALYST is at the moment working with her the pt. to get her into a B/C and leave the hospital. ACQUISITIONS LOGISTICS ANALYST made a call and found the card has a balance of $708. ACQUISITIONS LOGISTICS ANALYST brought the card back to an upset pt. who said ACQUISITIONS LOGISTICS ANALYST had stolen her card and was calling the police and her sister Jessica. ACQUISITIONS LOGISTICS ANALYST called Annette at the B/C who said she could use the card for the deposit. Annette added she just was on the phone with pts sister Jessica Chakraborty who stated she will work on the deposit at 3pm today. ACQUISITIONS LOGISTICS ANALYST will remain available as needed.
--- NOTE | 2021-08-23 13:49 | NUR ---
Spoke w/ Maria Luisa at [facility]-[phone]. She stated [facility] will arrange for Dialysis and they will work with [facility] to set up out patient dialysis transportation.
--- NOTE | 2021-08-23 14:10 | NUR ---
NURSE NOTE PATIENT IN BED, RESPIRATIONS EVEN, NON LABORED, BED IN LOW AND LOCKED POSITION, CALL LIGHT WITHIN REACH, BED ALARM ON. PATIENT DENIES ANY PAIN OR DISCOMFORT
--- NOTE | 2021-08-23 15:29 | NUR ---
INTELLIGENCE OFFICER Upon receiving confirmation that patient's family has completed deposit and necessary documents to Board and Care, JEFFREY Lewis faxed transport request to [facility] Transport JEFFREY will continue to be available as needed Addendum: 08/23/21 at 1620 by Debbie MURPHY JEFFREY Lewis contacted [facility] Transport to obtain an update. At this time patient's transport request is under review. As requested JEFFREY faxed the Non-Emergency Medical Transportation Physician Certification Statement to [facility]
[2021-08-23 16:00] VITALS: BP_SYST 112
[2021-08-23] MEDS: EPOETIN ALFA-EPBX 4,000 UNITS/ML VIAL SUBCUT SCH ×2 (16:51→16:55)
[2021-08-23] MEDS ORDERED: traMADol HCL HCL 50 MG TABLET (ULTRAM) PO PRN (17:15)
[2021-08-23] MEDS ORDERED: ZOLPIDEM TARTRATE 5 MG TABLET PO PRN (17:30)
--- NOTE | 2021-08-23 19:15 | NUR ---
CLOSING NOTE PROVIDED SBAR TO NIGHT RN, PATIENT IN BED, RESPIRATIONS EVEN, NON LABORED, BED IN LOW AND LOCKED POSITION, CALL LIGHT WITHIN REACH,. ENDORSED CARE TO NIGHT RN AND GAVE PHONE NUMBER FOR TRANSPORTATION TO NIGHT RN FOR DISCHARGE
[2021-08-23 20:00] VITALS: BP_SYST 107
[2021-08-23 21:34] VITALS: BP_SYST 112
[2021-08-23] MEDS: LORazepam 1 MG TABLET PO PRN (21:54)
[2021-08-23] MEDS: ATENOLOL 50 MG TABLET (TENORMIN) PO SCH (22:40)
[2021-08-23] MEDS: traZODone HCL 50 MG TABLET (DESYREL) PO SCH (22:46)
[2021-08-24] VITALS: BP_SYST 115
--- NOTE | 2021-08-24 07:53 | NUR ---
PHYSICAL THERAPY CO-SIGN The Physical Therapy Progress Notes documented by Rn Production have been reviewed. Reviewed/Co-Signed by: David Beach Documentation Done by: BRETT LYON PTA Addendum: 08/24/21 at 0754 by David Beach PT Amended: Links added.
[2021-08-24] MEDS: HEPARIN SODIUM,PORCINE 5,000 UNITS/ML VIAL SUBCUT SCH (09:00)
[2021-08-24] MEDS: NIFEdipine 30 MG TAB.ER.24 PO SCH (09:00)
--- NOTE | 2021-08-24 09:05 | NUR ---
HARVESTING CONTRACTOR JEFFREY Lewis consulted with assigned RN Sidra to obtain an update on dialysis time and informed her discharge is planned for today and transportation would be scheduled when dialysis time is confirmed. MANAGER NUCLEAR requested RN to contact MANAGER NUCLEAR when dialysis time is obtained. MANAGER NUCLEAR will continue to be available as needed Addendum: 08/24/21 at 1227 by Debbie MURPHY JEFFREY Lewis received call from patient's RN Sidra sharing patient was requesting number for Board and Care to speak to them. JEFFREY provided RN with number for Annette [facility] Addendum: 08/24/21 at 1228 by Debbie MURPHY JEFFREY Lewis was again contacted by RN sharing having been unable to make contact with Annette for patient. She also shared the patient's had begun dialysis and had spoken with her daughter. MANAGER NUCLEAR attempted contact with Annette, unable to leave voicemail due to being full
[2021-08-24] MEDS: DIPHENHYDRAMINE HCL 25 MG CAPSULE PO SCH (11:39)
[2021-08-24] MEDS: SERTRALINE HCL 50 MG TABLET PO SCH (11:39)
[2021-08-24] MEDS: SEVELAMER CARBONATE 800 MG TABLET PO SCH (11:39)
--- NOTE | 2021-08-24 11:40 | NUR ---
MIGRATION AGENT SENIOR QUALITY ENGINEER Debbie faxed transport request to [facility] Transport . Addendum: 08/24/21 at 1609 by Debbie Stafford SENIOR QUALITY ENGINEER JEFFREY Lewis contacted [facility] Transport to obtain an update on transport request. According to Nelly, request was cancelled due to Annette (Board and Care) informing transport company patient's mother had picked up patient. SENIOR QUALITY ENGINEER informed Nelly is still inpatient, and request was resubmitted. Nelly marti [employer] will be providing transportation with next available vehicle.
--- NOTE | 2021-08-24 16:00 | NUR ---
pt A/ox3,vss,has HD completed and removed 2 L per HD,pt tolerated well. d/c to [facility] boarding [facility],pt picked up by her mother jose tel:[phone],given transfer packet upon d/c.and address for [facility] in [place].leaving via her own w/c and accompanied by her family
== END 2021-08-24 20:00 | DRG 70 ==
LOC: SED 12:39 → STU 16:23 → SMU 08-09 11:42
PROVIDERS: ADMIT General Practice; ATTEND General Practice
PROC: 5A1D70Z Performance of Urinary Filtration, Intermittent, Less than 6 Hours Per Day (ICD-10-PCS; principal; 2021-08-06)
PROC: 5A1D70Z Performance of Urinary Filtration, Intermittent, Less than 6 Hours Per Day (ICD-10-PCS; 2021-08-08)
PROC: 5A1D70Z Performance of Urinary Filtration, Intermittent, Less than 6 Hours Per Day (ICD-10-PCS; 2021-08-10)
PROC: 5A1D70Z Performance of Urinary Filtration, Intermittent, Less than 6 Hours Per Day (ICD-10-PCS; 2021-08-13)
PROC: 5A1D70Z Performance of Urinary Filtration, Intermittent, Less than 6 Hours Per Day (ICD-10-PCS; 2021-08-14)
PROC: 5A1D70Z Performance of Urinary Filtration, Intermittent, Less than 6 Hours Per Day (ICD-10-PCS; 2021-08-17)
PROC: 5A1D70Z Performance of Urinary Filtration, Intermittent, Less than 6 Hours Per Day (ICD-10-PCS; 2021-08-19)
PROC: 5A1D70Z Performance of Urinary Filtration, Intermittent, Less than 6 Hours Per Day (ICD-10-PCS; 2021-08-21)
PROC: 5A1D70Z Performance of Urinary Filtration, Intermittent, Less than 6 Hours Per Day (ICD-10-PCS; 2021-08-24)
DX: G93.41 Metabolic encephalopathy (principal); N17.0 Acute kidney failure with tubular necrosis; N18.6 End stage renal disease; I12.0 Hypertensive chronic kidney disease with stage 5 chronic kidney disease or end stage renal disease; E44.1 Mild protein-calorie malnutrition; Z68.41 Body mass index [BMI] 40.0-44.9, adult; E87.5 Hyperkalemia; E11.22 Type 2 diabetes mellitus with diabetic chronic kidney disease; Z99.2 Dependence on renal dialysis; Z91.15 Patient's noncompliance with renal dialysis; D63.8 Anemia in other chronic diseases classified elsewhere; E66.9 Obesity, unspecified; H54.8 Legal blindness, as defined in USA; Z20.822 Contact with and (suspected) exposure to COVID-19; Z91.19 Patient's noncompliance with other medical treatment and regimen; Z88.8 Allergy status to other drugs, medicaments and biological substances; Z88.5 Allergy status to narcotic agent; Z59.01 Sheltered homelessness; Z91.14 Patient's other noncompliance with medication regimen
CPT/HCPCS: 36415; 71045; 80048; 80053; 82962; 83036; 83735; 83880; 84100; 84484; 85025; 87081; 90935; 90937; 93005; 97110-GP; 97116-GP; 99285; G0378; G0480; G0481; G0482; J0610; J1200; J1644; J2060; J2270; J2405; Q0163; Q5106